=== PATIENT | female | born 1990 | race Caucasian/White ===

== ENCOUNTER 2022-02-28 07:48 | Outpatient (CLI) | payer OTHER, SELFPAY ==
--- NOTE | ~2022-02-28 | US_ITS ---
EXAMINATION: US OB /maternal detail DATE: 02/28/2022 09:32 INDICATION: Second trimester anatomic survey TECHNIQUE: Real-time ultrasound of the pelvis was performed. COMPARISON: None. FINDINGS: There is a single living fetus in vertex presentation. The placenta is posterior/fundal and 6.2 cm fr om the internal cervical os. The cervical length is 4.8 cm. heart rate is 126 beats per minute (bpm). cardiac activity and movement are noted. The amniotic fluid index is subjectively normal. The following anatomy was identified as normal: 4 chamber heart 3 vessel cord cord insertion kidneys urinary bladder stomach spine diaphragm ventricles cisterna magna cerebellum The following biometric data were obtained: Biparietal diameter (BPD): 3.9 cm; head circumference (HC): 15.0 cm; abdominal circumference (AC): 12 .7 cm; femur length (FL): 2.8 cm. These measurements are concordant. Estimated weight is 238 g +/- 35 g, which correlates with the 6th percentile when 07/22/2022 is used as estimated date of delivery. As single measurements, these parameters are each equal to the following estimated gestational ages w ith ranges of +/- 2 standard deviations: BPD: 18 weeks 0 days +/- 1 weeks 1 days. HC: 18 weeks 0 days +/- 1 weeks 3 days. AC: 18 weeks 2 days +/- 2 weeks 0 days. FL: 18 weeks 5 days +/- 1 weeks 6 days. estimated gestational age based solely on measurements from this exam is 18 weeks 2 days +/- 1 weeks 2 days. IMPRESSION: 1. Single living fetus in vertex presentation. 2. Estimated weight is 238 g +/- 35 g, which correlates with the 6th percentile when 07/22/2022 is used as estimated date of delivery. Reviewed, dictated and finalized at location B. IMPRESSION: 1. Single living fetus in vertex presentation. 2. Estimated weight is 238 g +/- 35 g, which correlates with the 6th perc entile when 07/22/2022 is used as estimated date of delivery.
== END 2022-02-28 07:49 | disposition home or self-care (01) ==
LOC: CHSIMG 07:51
PROVIDERS: Visit Provider Obstetrics & Gynecology
DX: Z34.90 Encounter for supervision of normal pregnancy, unspecified, unspecified trimester (principal)
CPT/HCPCS: 76805

== ENCOUNTER 2023-06-16 08:58 | Inpatient (IN) | payer MEDICAID, SELFPAY ==
[2023-06-16] VITALS (23 sets, daily range): BP systolic 136–167; BP diastolic 87–102; PULSE 61–101; RESP 16–22; TEMP 36.6–36.8; O2SAT 96–100; BMI 24.1
--- NOTE | ~2023-06-16 | CT_ITS ---
EXAMINATION: CT abdomen pelvis w con INDICATION: Abdominal pain, history of pancreatitis TECHNIQUE: Computed tomographic images of the abdomen and pelvis were obtained after the administrati on of 100 cc of Omnipaque 350 intravenous contrast. The dose-length product (DLP) was 219.13 mGy-cm. Automated exposure control and iterative reconstruction technique were employed. COMPARISON: None available FINDINGS: The lung bases are clear. The heart size is normal. The liver is diffusely low in attenuati on when compared with the spleen, consistent with hepatic steatosis. Hepatomegaly is noted. The splee n, gallbladder, and adrenal glands are normal. The pancreas is unremarkable. There is a small amount of peripancreatic fluid. The kidneys are unremarkable. No pathologically enlarged abdominal or pelvic lymph nodes are identified. No free intraperitoneal gas or evidence of bowel obstruction. There is a tiny umbilical hernia containing fat. IMPRESSION: 1. Acute pancreatitis, likely interstitial edematous, with acute peripancreatic fluid collection. 2. Diffuse hepatic steatosis. Reviewed, dictated and finalized at location F. R OPERATOR
[2023-06-16] MEDS: ONDANSETRON INJ 4 MG/2 ML VIAL IV PUSH ×4 (09:11→21:20)
[2023-06-16 09:12] LABS: Basophils Absolute Auto 0.1 K/mm3 (0.0-0.1); Basophils Percent Auto 0.9 % (0.2-1.2); Eosinophils Absolute Auto 0.1 K/mm3 (0-0.3); Eosinophils Percent Auto 0.7 % (0-4.4); Hematocrit 39.6 % (37.0-47.0); Hemoglobin 12.6 g/dL (12.0-15.0); Immature Granulocyte Absolute 0.02 K/mm3 (0.00-0.031); Immature Granulocyte Percent A 0.3 % (0-0.5); Lymphocytes Absolute Auto 1.06 K/mm3 (0.9-3.2); Lymphocytes Percent Auto 15.7 % (18.3-44.2); Mean Corpuscular HGB Conc 31.8 g/dl (32-36); Mean Corpuscular Hemoglobin 27.9 pg (26-34); Mean Corpuscular Volume 87.8 fl (80-100); Monocytes Absolute Auto 0.7 K/mm3 (0.1-0.6); Monocytes Percent Auto 10.7 % (2.6-8.5); Neutrophils Absolute Auto 4.9 K/mm3 (1.3-6.7); Neutrophils Percent Auto 71.7 % (45.5-73.1); Platelet Count Result 315 k/mm3 (150-375); Red Blood Count 4.51 M/mm3 (4.2-5.4); Red Cell Distribution Width 15.5 % (11.5-14.5); White Blood Count 6.8 K/mm3 (4.5-10.0)
[2023-06-16 09:24] LABS: Alanine Aminotransferase 141 U/L (6-35); Albumin Level 4.8 g/dL (3.5-5.1); Alkaline Phosphatase 125 U/L (38-126); Anion Gap 13 mmol/L (8-16); Aspartate Amino Transferase 251 U/L (14-36); Bilirubin,Total 2.1 mg/dL (0.2-1.3); Blood Urea Nitrogen 8 mg/dL (7-17); Calcium 9.5 mg/dL (8.4-10.2); Carbon Dioxide 25 mmol/L (22-30); Chloride 98 mmol/L (98-107); Estimated CRCL calculation 112 ml/min; Estimated Glomerular Filt Rate > 60; Glucose 125 mg/dL (65-110); Potassium 3.6 mmol/L (3.4-5.0); Sodium 136 mmol/L (137-145)
[2023-06-16 10:12] LABS: Bacteria Urine 1+ /hpf; Need Manual Microscopic Reviewed; Squamous Epithelial Cell Urine Moderate /hpf (Few)
[2023-06-16 10:13] LABS: Lipase 3927 U/L (23-300)
[2023-06-16 10:14] LABS: Appearance Urine Cloudy (Clear); Bilirubin Urine 2+ (Negative); Blood Urine Negative (Negative); Color Urine Orange (Yellow); Glucose Urine UA Negative (Negative); Ketones Urine 3+ mg/dL (Negative); Leukocyte Esterase Ur 1+ LEU/UL (Negative); Nitrate Urine Positive (Negative); Protein Urine 3+ mg/dL (Negative); Specific Grav Ur 1.042 (1.001-1.035); pH Urine 7.5 (5.0-9.0)
[2023-06-16 10:15] LABS: Add Urine Microscopic? YES
[2023-06-16] MEDS: SODIUM CHLORIDE 0.9% IV 1,000 ML 999 ML IV CONT ×2 (10:21→12:12)
--- NOTE | 2023-06-16 10:24 | PC.NURSE ---
pt states she drinks four to five shots of vodka a day. Pt states last drink was two days ago.
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
[2023-06-16] MEDS: HYDROmorphone HCL INJ (*CRX) 1 MG/ML SYR 0.5 MG IV PUSH ×4 (12:12→21:20)
[2023-06-16] MEDS: SODIUM CHLORIDE 0.9% IV 1,000 ML 200 ML IV CONT ×2 (15:11→20:10)
--- NOTE | 2023-06-16 15:22 | ADMGEN ---
This patient, Velia Deleon, was admitted to Medical Room 349-01. Patient/family oriented to hospital policies and general routines including ID bracelet, bed and alarms, visiting hours, pain management, procedures, bathroom and other care routines, personal items, smoking policy, room service/diet, and visiting hours. Information on how to activate the Rapid Response Team has been discussed. Patient/Family are encouraged to report perceived risks to care and to ask questions if they do not understand what they are told or what they should do.
[2023-06-16] MEDS: HYDROcodone/acetaminophen (*CRX) 5-325 MG TABLET 1 TAB PO (20:06)
[2023-06-16] MEDS: diphenhydrAMINE HCl INJ 50 MG/ML VIAL 25 MG IV PUSH (22:38)
[2023-06-16] MEDS: PROCHLORPERAZINE EDISYLATE 10 MG/2 ML VIAL IV PUSH (22:38)
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
[2023-06-17] VITALS: PULSE 92
[2023-06-17 01:04] LABS: Glucose Point of Care 82 mg/dl (65-105)
[2023-06-17] MEDS: SODIUM CHLORIDE 0.9% IV 1,000 ML 200 ML IV CONT (01:10)
[2023-06-17] MEDS: HYDROmorphone HCL INJ (*CRX) 1 MG/ML SYR 0.5 MG IV PUSH ×6 (02:57→20:13)
[2023-06-17] MEDS: ONDANSETRON INJ 4 MG/2 ML VIAL IV PUSH ×5 (03:00→20:33)
[2023-06-17 04:00] VITALS: PULSE 98
[2023-06-17 05:36] VITALS: BP 153/102; PULSE 89; RESP 18; TEMP 36.5; O2SAT 100
[2023-06-17 05:51] LABS: Basophils Percent Auto 0.3 % (0.2-1.2); Eosinophils Absolute Auto 0.2 K/mm3 (0-0.3); Eosinophils Percent Auto 2.1 % (0-4.4); Hematocrit 41.5 % (37.0-47.0); Immature Granulocyte Absolute 0.04 K/mm3 (0.00-0.031); Immature Granulocyte Percent A 0.4 % (0-0.5); Lymphocytes Absolute Auto 1.17 K/mm3 (0.9-3.2); Lymphocytes Percent Auto 10.3 % (18.3-44.2); Mean Corpuscular HGB Conc 31.3 g/dl (32-36); Mean Corpuscular Hemoglobin 28.3 pg (26-34); Mean Corpuscular Volume 90.2 fl (80-100); Mean Platelet Volume 9.1 fl (7.4-10.4); Monocytes Absolute Auto 0.5 K/mm3 (0.1-0.6); Monocytes Percent Auto 4.4 % (2.6-8.5); Neutrophils Absolute Auto 9.4 K/mm3 (1.3-6.7); Neutrophils Percent Auto 82.5 % (45.5-73.1); Platelet Count Result 209 k/mm3 (150-375); Red Cell Distribution Width 15.1 % (11.5-14.5); White Blood Count 11.4 K/mm3 (4.5-10.0)
[2023-06-17 06:10] LABS: Glucose Point of Care 86 mg/dl (65-105)
[2023-06-17 06:52] LABS: Alanine Aminotransferase 103 U/L (6-35); Albumin Level 3.7 g/dL (3.5-5.1); Alkaline Phosphatase 95 U/L (38-126); Anion Gap 8 mmol/L (8-16); Aspartate Amino Transferase 118 U/L (14-36); Blood Urea Nitrogen 2 mg/dL (7-17); Calcium 8.1 mg/dL (8.4-10.2); Carbon Dioxide 27 mmol/L (22-30); Chloride 97 mmol/L (98-107); Estimated CRCL calculation 112 ml/min; Estimated Glomerular Filt Rate > 60; Glucose 78 mg/dL (65-110); Potassium 3.6 mmol/L (3.4-5.0); Sodium 132 mmol/L (137-145)
[2023-06-17 07:31] LABS: Lipase 6028 U/L (23-300)
--- NOTE | 2023-06-17 08:38 | WPDGICN ---
Assessment and Plan Assessment and plan (1) Acute pancreatitis: Qualifiers: Acute pancreatitis complication: unspecified Pancreatitis type: alcohol induced Qualified Code(s): K85.20 - Alcohol induced acute pancreatitis without necrosis or infection Code(s): K85.90 - Acute pancreatitis without necrosis or infection, unspecified Status: Acute Assessment and Plan: this is her 2nd occurrence within 3 months. Both times associated with alcohol use/ ab use. Explained her that she is likely to get more frequent recurrences if he continues to drink. I also explained her that pancreatitis can be quite severe and in fact in some case is fatal (2) Alcohol abuse: Code(s): F10.10 - Alcohol abuse, uncomplicated Status: Acute Assessment and Plan: . She is not alcohol once for a extended period of time. She states that she intends to do that again. She wants to quit completely and she says that she has good support. (3) Transaminitis: Code(s): R74.01 - Elevation of levels of liver transaminase levels Status: Acute Assessment and Plan: bilirubin is 2. AST and ALT 454483 at admission however somewhat lower today. Plan Manage pain advance diet cautiously. Consider rehab for alcohol abuse GI Consult Note Consult date/time: 06/17/23 08:38 HPI: Velia Deleon is a 33 year old female who presented to the emergency room yesterday with a history of nausea vomiting abdominal pain beginning about 3 days prior. She has also had loose stools recently although no bowel movement now for the last 3 days. She has had pancreatitis in the past. She was in [place] a few months ago with pancreatitis. She admits that she drinks heavily several shots of hard alcohol each day. She had been clean for a while but relapsed. There is no family history of pancreatic disease or liver disease but a grandparent on either side of her family has from cancer of the pancreas. Her appetite is fairly good although she is not eating great. She has never had alcohol withdrawal syndrome except she thinks she had some tremors last day or 2 prior to admission and she has had no alcohol now for 3 days. Review of Systems Review of Systems: All systems reviewed & are unremarkable except as noted in HPI and below PMFSH Past Medical History Medical History Alcohol abuse Pancreatitis Family History Family History Grandparent Pancreatic cancer both maternal and paternal side Social History Social History Smoking packs per day: 0.5 Smoking cigarettes per day: 10.0 Years smoked: 15 Smoking pack-years: 7.50 Smoking status: Former smoker Tobacco type: cigarettes Alcohol intake: current Drinks per week: 35 Substance use: current Substance use type: marijuana Last use: 06/02/23 Lack of Transportation: No Lack of Food: Never True Current Housing: I Have Housing Concerned About Future Housing: No Difficulty Paying Gas/Electric Bills: No Difficulty Paying for Meds: No Currently Unemployed: YES Education: High School Diploma/GED Difficulty w/ Childcare or Family Care: No Spiritual care concerns: No Meds Home Medications and Allergies Home Medications Medication Instructions Recorded Confirmed Type No Home Medications 06/16/23 06/16/23 History Allergies Allergy/AdvReac Type Severity Reaction Status Date / Time No Known Allergies Allergy Mild Verified 06/16/23 10:23 Vital Signs Vital Signs - 24 hr 06/16/23 08:58 06/16/23 11:00 06/16/23 11:10 Temperature 36.6 C Pulse Rate 97 62 Pulse Rate [Monitor] Respiratory Rate 16 22 H Blood Pressure 139/87 152/90 H Pulse Oximetry 100 97 100 Oxygen Delivery 06/16/23 11:20 06/16/23 11:30 06/16/23 11
[2023-06-17] MEDS: ENOXAPARIN 40 MG/0.4 ML SYRINGE SUB-Q (08:58)
[2023-06-17 12:07] LABS: Hemoglobin A1C 5.1 % (<5.7)
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
[2023-06-17 12:33] LABS: Glucose Point of Care 80 mg/dl (65-105)
[2023-06-17 14:00] VITALS: BP 143/98; PULSE 103; RESP 18; TEMP 36.8; O2SAT 100
[2023-06-17 14:31] VITALS: BMI 24.1
[2023-06-17 17:28] LABS: Sodium 131 mmol/L (137-145)
[2023-06-17 17:38] LABS: Lipase 4267 U/L (23-300)
[2023-06-17 20:00] VITALS: PULSE 98
[2023-06-17] MEDS: SODIUM CHLORIDE 0.9% IV 1,000 ML 100 ML IV CONT (20:10)
[2023-06-17 21:51] VITALS: BP 147/89; PULSE 98; RESP 16; TEMP 36.5; O2SAT 97
[2023-06-17] MEDS: LORazepam INJ (*CRX) 2 MG/ML VIAL IV PUSH (22:51)
[2023-06-18] VITALS (9 sets, daily range): BP systolic 127–140; BP diastolic 85–98; PULSE 80–102; RESP 16–18; TEMP 36.2–36.6; O2SAT 99–100
[2023-06-18] MEDS: ONDANSETRON INJ 4 MG/2 ML VIAL IV PUSH ×5 (01:13→21:17)
[2023-06-18] MEDS: HYDROmorphone HCL INJ (*CRX) 1 MG/ML SYR 0.5 MG IV PUSH ×5 (01:13→21:17)
[2023-06-18] MEDS: SODIUM CHLORIDE 0.9% IV 1,000 ML 100 ML IV CONT (05:39)
[2023-06-18 06:08] LABS: Basophils Percent Auto 0.3 % (0.2-1.2); Eosinophils Absolute Auto 0.3 K/mm3 (0-0.3); Eosinophils Percent Auto 2.4 % (0-4.4); Hematocrit 38.2 % (37.0-47.0); Hemoglobin 12.2 g/dL (12.0-15.0); Immature Granulocyte Absolute 0.06 K/mm3 (0.00-0.031); Immature Granulocyte Percent A 0.6 % (0-0.5); Mean Corpuscular HGB Conc 31.9 g/dl (32-36); Mean Corpuscular Hemoglobin 28.3 pg (26-34); Mean Corpuscular Volume 88.6 fl (80-100); Mean Platelet Volume 9.1 fl (7.4-10.4); Monocytes Absolute Auto 0.7 K/mm3 (0.1-0.6); Monocytes Percent Auto 6.1 % (2.6-8.5); Neutrophils Absolute Auto 8.4 K/mm3 (1.3-6.7); Neutrophils Percent Auto 77.6 % (45.5-73.1); Platelet Count Result 180 k/mm3 (150-375); Red Blood Count 4.31 M/mm3 (4.2-5.4); White Blood Count 10.8 K/mm3 (4.5-10.0)
[2023-06-18 07:03] LABS: Alanine Aminotransferase 70 U/L (6-35); Albumin Level 3.1 g/dL (3.5-5.1); Alkaline Phosphatase 90 U/L (38-126); Anion Gap 8 mmol/L (8-16); Aspartate Amino Transferase 88 U/L (14-36); Bilirubin,Total 1.9 mg/dL (0.2-1.3); Blood Urea Nitrogen 3 mg/dL (7-17); Carbon Dioxide 27 mmol/L (22-30); Chloride 97 mmol/L (98-107); Estimated CRCL calculation 112 ml/min; Estimated Glomerular Filt Rate > 60; Glucose 77 mg/dL (65-110); Magnesium 1.5 mg/dL (1.6-2.3); Potassium 3.3 mmol/L (3.4-5.0); Sodium 132 mmol/L (137-145)
[2023-06-18 07:23] LABS: Lipase 2675 U/L (23-300)
[2023-06-18] MEDS: POTASSIUM CHLORIDE INJ 40 MEQ in SODIUM CHLORIDE 0.9% IV 500 ML 130 MEQ IVPB (08:29)
[2023-06-18] MEDS: MAGNESIUM SULFATE 3GM/D5W100ML 3 GM/100 ML BAG IVPB (08:29)
[2023-06-18] MEDS: HYDROcodone/acetaminophen (*CRX) 5-325 MG TABLET 1 TAB PO (08:33)
[2023-06-18] MEDS: ENOXAPARIN 40 MG/0.4 ML SYRINGE SUB-Q (08:36)
--- NOTE | 2023-06-18 09:12 | WPDGIPROGNO ---
Progress Note: A&P Assessment and Plan (1) Acute pancreatitis: Qualifiers: Acute pancreatitis complication: unspecified Pancreatitis type: alcohol induced Qualified Code(s): K85.20 - Alcohol induced acute pancreatitis without necrosis or infection Code(s): K85.90 - Acute pancreatitis without necrosis or infection, unspecified Status: Acute Assessment and Plan: this is her 2nd occurrence within 3 months. Both times associated with alcohol use/ ab use. I Explained to her that she is likely to get more frequent recurrences if he continues to drink. I also explained her that pancreatitis can be quite severe and in fact in some case is fatal 06/18/2023 lipase is down to 2675 this morning. (2) Alcohol abuse: Code(s): F10.10 - Alcohol abuse, uncomplicated Status: Acute Assessment and Plan: . She is not alcohol once for a extended period of time. She states that she intends to do that again. She wants to quit completely and she says that she has good support. (3) Transaminitis: Code(s): R74.01 - Elevation of levels of liver transaminase levels Status: Acute Assessment and Plan: bilirubin is 2. AST and ALT 251/141 at admission however somewhat lower today. 06/18/2023 labs are improving. Bilirubin is 1.9 today. AST and ALT are 88 and 70 respectively. Plan Manage pain advance diet cautiously. Consider rehab for alcohol abuse When pain can be managed without morphine and she is able to eat then she could be discharged from my perspective. Please contact me if I can be of any further assistance Subjective Date/time seen: 06/18/23 09:12 She has less pain today. She thinks that has been actually several hours since she last requested morphine. She is taking clear liquids but does not feel up to trying anything more as she does not have an appetite. Exam Const: General: cooperative, healthy appearing, no acute distress and uncomfortable Orientation/consciousness: patient oriented x3 HENMT: Head: normal to inspection Ears: hearing grossly normal bilaterally Mouth: Yes Normal oral and palatal mucosa present Eyes: General: appearance normal, both eyes and all related structures Neck: Neck: normal visual inspection Chest: Chest palpation & inspection: normal inspection of the chest Resp: Effort & Inspection: normal respiratory effort Auscultation: clear to auscultation bilaterally Cardio: Rate: regular rate Rhythm: regular rhythm GI: Inspection: normal to inspection GI Palp: Yes abdominal tenderness (Upper abdomen), Yes Soft to palpation and No Guarding due to palpation present (GI) Auscultation: normal bowel sounds Skin: General skin exam: normal color and no jaundice Neuro: General: patient oriented x3 Speech: normal speech Objective Data Vital Signs Vital Signs: Vital Signs - 24 hr 06/17/23 14:00 06/17/23 21:51 06/17/23 20:00 Temperature 36.8 C 36.5 C Pulse Rate 103 H 98 Pulse Rate [Monitor] 98 Respiratory Rate 18 16 Blood Pressure 143/98 H 147/89 H Pulse Oximetry 100 97 Oxygen Delivery 06/18/23 00:00 06/18/23 04:12 06/18/23 04:00 Temperature 36.4 C Pulse Rate 86 Pulse Rate [Monitor] 96 102 H Respiratory Rate 16 Blood Pressure 127/85 Pulse Oximetry 99 Oxygen Delivery 06/18/23 08:00 06/18/23 08:00 Temperature Pulse Rate Pulse Rate [Monitor] 102 H Respiratory Rate Blood Pressure 127/85 Pulse Oximetry Oxygen Delivery Room Air Intake/Output Intake/Output: Intake & Output 06/15/23 06/16/23 06/17/23 06/18/23 23:59 23:59 23:59 23:59 Intake Total 3050 2880 1300 Balance 3050 2880 1300 Meds/Results Medications: Active Medications Generic Name Dose Route Start Last Admin Trade Name Freq PRN Reason Stop Dose Admin Hydrocodone Bitart/Acetaminophen 1 tab 06/16/23 19:52 06/18/23 08:33 Hydrocodone/Acetaminophen (*Crx) 5-325 Mg Tablet PO 1 tab Q4H PRN
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
[2023-06-18] MEDS: LORazepam INJ (*CRX) 2 MG/ML VIAL IV PUSH (23:43)
[2023-06-19] VITALS (7 sets, daily range): BP systolic 138–144; BP diastolic 101–105; PULSE 77–99; RESP 16–20; TEMP 36.7–37.3; O2SAT 97–100
[2023-06-19] MEDS: ONDANSETRON INJ 4 MG/2 ML VIAL IV PUSH ×4 (03:19→17:22)
[2023-06-19] MEDS: HYDROmorphone HCL INJ (*CRX) 1 MG/ML SYR 0.5 MG IV PUSH (03:19)
[2023-06-19] MEDS: LORazepam INJ (*CRX) 2 MG/ML VIAL IV PUSH (03:41)
[2023-06-19 06:39] LABS: Basophils Percent Auto 0.4 % (0.2-1.2); Eosinophils Absolute Auto 0.3 K/mm3 (0-0.3); Eosinophils Percent Auto 2.9 % (0-4.4); Hemoglobin 12.6 g/dL (12.0-15.0); Immature Granulocyte Absolute 0.07 K/mm3 (0.00-0.031); Immature Granulocyte Percent A 0.8 % (0-0.5); Lymphocytes Absolute Auto 1.34 K/mm3 (0.9-3.2); Lymphocytes Percent Auto 14.9 % (18.3-44.2); Mean Corpuscular HGB Conc 30.7 g/dl (32-36); Mean Corpuscular Hemoglobin 28.3 pg (26-34); Mean Corpuscular Volume 91.9 fl (80-100); Mean Platelet Volume 9.6 fl (7.4-10.4); Monocytes Absolute Auto 0.8 K/mm3 (0.1-0.6); Monocytes Percent Auto 9.3 % (2.6-8.5); Neutrophils Absolute Auto 6.5 K/mm3 (1.3-6.7); Neutrophils Percent Auto 71.7 % (45.5-73.1); Platelet Count Result 221 k/mm3 (150-375); Red Blood Count 4.46 M/mm3 (4.2-5.4); Red Cell Distribution Width 15.7 % (11.5-14.5)
[2023-06-19 06:50] LABS: Alanine Aminotransferase 76 U/L (6-35); Albumin Level 3.8 g/dL (3.5-5.1); Alkaline Phosphatase 134 U/L (38-126); Anion Gap 10 mmol/L (8-16); Aspartate Amino Transferase 118 U/L (14-36); Bilirubin,Total 1.6 mg/dL (0.2-1.3); Blood Urea Nitrogen 3 mg/dL (7-17); Carbon Dioxide 22 mmol/L (22-30); Chloride 103 mmol/L (98-107); Estimated CRCL calculation 137 ml/min; Estimated Glomerular Filt Rate > 60; Glucose 79 mg/dL (65-110); Lipase 1197 U/L (23-300); Magnesium 2.1 mg/dL (1.6-2.3); Potassium 3.8 mmol/L (3.4-5.0); Sodium 135 mmol/L (137-145)
[2023-06-19] MEDS: ENOXAPARIN 40 MG/0.4 ML SYRINGE SUB-Q (08:53)
[2023-06-19] MEDS: SODIUM CHLORIDE 0.9% IV 1,000 ML 100 ML IV CONT ×2 (08:53→21:01)
[2023-06-19] MEDS: HYDROcodone/acetaminophen (*CRX) 5-325 MG TABLET 1 TAB PO ×2 (08:54→13:29)
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
[2023-06-19 14:17] LABS: Lipase 1204 U/L (23-300)
[2023-06-19] MEDS: IBUPROFEN 600 MG TABLET PO (17:22)
[2023-06-19] MEDS: ACETAMINOPHEN 325 MG TABLET 650 MG PO (21:00)
[2023-06-19] MEDS: MELATONIN 5 MG TABLET PO (21:00)
[2023-06-20 05:54] LABS: Basophils Absolute Auto 0.1 K/mm3 (0.0-0.1); Basophils Percent Auto 0.8 % (0.2-1.2); Eosinophils Absolute Auto 0.2 K/mm3 (0-0.3); Eosinophils Percent Auto 3.6 % (0-4.4); Hemoglobin 11.6 g/dL (12.0-15.0); Immature Granulocyte Absolute 0.07 K/mm3 (0.00-0.031); Immature Granulocyte Percent A 1.1 % (0-0.5); Mean Corpuscular HGB Conc 31.4 g/dl (32-36); Mean Corpuscular Hemoglobin 28.6 pg (26-34); Mean Corpuscular Volume 91.1 fl (80-100); Mean Platelet Volume 9.2 fl (7.4-10.4); Monocytes Absolute Auto 0.7 K/mm3 (0.1-0.6); Monocytes Percent Auto 10.7 % (2.6-8.5); Neutrophils Absolute Auto 3.9 K/mm3 (1.3-6.7); Neutrophils Percent Auto 62.8 % (45.5-73.1); Platelet Count Result 244 k/mm3 (150-375); Red Blood Count 4.06 M/mm3 (4.2-5.4); White Blood Count 6.2 K/mm3 (4.5-10.0)
[2023-06-20 06:00] VITALS: BP 167/119; PULSE 62; RESP 19; TEMP 36.5; O2SAT 100
[2023-06-20 06:13] LABS: Alanine Aminotransferase 73 U/L (6-35); Albumin Level 3.4 g/dL (3.5-5.1); Alkaline Phosphatase 139 U/L (38-126); Anion Gap 9 mmol/L (8-16); Aspartate Amino Transferase 115 U/L (14-36); Bilirubin,Total 1.2 mg/dL (0.2-1.3); Blood Urea Nitrogen 4 mg/dL (7-17); Calcium 8.9 mg/dL (8.4-10.2); Carbon Dioxide 22 mmol/L (22-30); Chloride 105 mmol/L (98-107); Estimated CRCL calculation 137 ml/min; Estimated Glomerular Filt Rate > 60; Glucose 85 mg/dL (65-110); Lipase 945 U/L (23-300); Magnesium 1.8 mg/dL (1.6-2.3); Potassium 3.5 mmol/L (3.4-5.0); Sodium 136 mmol/L (137-145)
[2023-06-20 08:00] VITALS: PULSE 62; RESP 19; O2SAT 100
[2023-06-20] MEDS: CEFDINIR 300 MG CAPSULE PO (10:21)
[2023-06-20 10:31] VITALS: BP 147/104
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
--- NOTE | 2023-06-20 11:22 | PCNFU ---
Nutrition Follow-Up Complete: Inadequate oral intake related to acute pancreatitis, chronic alcohol abuse as evidenced by patient report of poor appetite, nausea and vomiting Goal:Diet advancement Pt meeting goal. New goal of po intake 75% of meals. Pt current nutrition is Low fat. Nutrition recommendation: continue with current plan of care Last recorded weight is 61.9 kg. Bowel Motility: No recent BM charted at this time Labs Reviewed: Alb:3.4, NA:136, BUN:4, Cr:0.4 Meds Noted:lovenox, zofran Skin: WNL Additional Notes: Pt diet advanced to low fat, intake 50-75% most meals, pt reports tolerating well. Appetite is fair at this time. Monitoring diet orders, plan of care, intakes, weights, labs, stool patterns Follow up in 5 days
== END 2023-06-20 12:45 | disposition home or self-care (01) | DRG 282 ==
LOC: ANHED 12:03 → ANH3MEDSUR 14:31 → ANH3MED 14:55
PROVIDERS: Student in an Organized Health Care Education/Training Program; Admitting Provider Family Medicine; Emergency Provider Emergency Medicine; Visit Provider Nurse Practitioner
DX: K85.20 Alcohol induced acute pancreatitis without necrosis or infection (principal); N39.0 Urinary tract infection, site not specified; K59.00 Constipation, unspecified; E87.1 Hypo-osmolality and hyponatremia; R74.01 Elevation of levels of liver transaminase levels; F10.10 Alcohol abuse, uncomplicated; F12.90 Cannabis use, unspecified, uncomplicated; Z87.891 Personal history of nicotine dependence
CPT/HCPCS: 36415; 74177; 80053; 81001; 81025; 82948; 83036; 83690; 83735; 84295; 85025; 87086; 87088; 96361; 96365; 96375; 96376; 99285; A9270; J0696; J0780; J1170; J1200; J1650; J2060; J2405; J3475; J3480; J7030; J7040; Q9967

== ENCOUNTER 2023-07-06 15:54 | Inpatient (IN) | payer MEDICAID, SELFPAY ==
[2023-07-06] VITALS (24 sets, daily range): BP systolic 126–166; BP diastolic 87–107; PULSE 97–135; RESP 14–21; TEMP 36.8–37.1; O2SAT 96–100; BMI 22.7
--- NOTE | 2023-07-06 16:08 | ECG_ITS ---
Measurements Intervals [place] Rate: 124 P: 66 IL: 176 QRS: 73 QRSD: 81 T: 55 QT: 336 QTc: 484 Interpretive Statements SINUS TACHYCARDIA NONSPECIFIC T-WAVE ABNORMALITY ABNORMAL RHYTHM ECG NO PREVIOUS ECG AVAILABLE FOR COMPARISON Electronically Signed On 07-07-2023 14:45:39 [employer] by Gurpreet Wall M.D.
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
--- NOTE | 2023-07-06 19:06 | PCCCNOTE ---
CC received referral for alcohol abuse. Met with patient and mother bedside. patient is alert and oriented x 4. patient states that her last drink was around 12pm today. CC offered patient resources for substance abuse and patient agreeable to referral being made to [facility]. patient states that she has met Tuan once and really liked him. patient stated that she is ok with DC and will follow up with Tuan. CC will continue to follow for any other needs that may arise.
[2023-07-06] MEDS: SODIUM CHLORIDE 0.9% IV 1,000 ML 999 ML IV CONT (19:44)
[2023-07-06] MEDS: THIAMINE HCL 200 MG/2 ML VIAL 100 MG IV PUSH (19:45)
[2023-07-06 19:46] LABS: Basophils Absolute Auto 0.1 K/mm3 (0.0-0.1); Basophils Percent Auto 1.4 % (0.2-1.2); Eosinophils Absolute Auto 0.4 K/mm3 (0-0.3); Eosinophils Percent Auto 4.5 % (0-4.4); Hematocrit 40.1 % (37.0-47.0); Hemoglobin 12.7 g/dL (12.0-15.0); Immature Granulocyte Absolute 0.03 K/mm3 (0.00-0.031); Immature Granulocyte Percent A 0.4 % (0-0.5); Lymphocytes Absolute Auto 2.75 K/mm3 (0.9-3.2); Lymphocytes Percent Auto 32.8 % (18.3-44.2); Mean Corpuscular HGB Conc 31.7 g/dl (32-36); Mean Corpuscular Hemoglobin 28.5 pg (26-34); Mean Corpuscular Volume 90.1 fl (80-100); Monocytes Absolute Auto 0.4 K/mm3 (0.1-0.6); Monocytes Percent Auto 4.8 % (2.6-8.5); Neutrophils Absolute Auto 4.7 K/mm3 (1.3-6.7); Neutrophils Percent Auto 56.1 % (45.5-73.1); Platelet Count Result 453 k/mm3 (150-375); Red Blood Count 4.45 M/mm3 (4.2-5.4); Red Cell Distribution Width 18.2 % (11.5-14.5); White Blood Count 8.4 K/mm3 (4.5-10.0)
[2023-07-06] MEDS: LORazepam INJ (*CRX) 2 MG/ML VIAL IV PUSH (19:46)
[2023-07-06] MEDS: FOLIC ACID 1 MG/0.2 ML INJ IV PUSH (19:47)
[2023-07-06] MEDS: chlordiazePOXIDE (*CRX) 25 MG CAPSULE 50 MG PO (19:47)
[2023-07-06 19:57] LABS: Ethanol 235 mg/dL (<10)
[2023-07-06 20:08] LABS: Alanine Aminotransferase 208 U/L (6-35); Albumin Level 4.2 g/dL (3.5-5.1); Alkaline Phosphatase 154 U/L (38-126); Anion Gap 13 mmol/L (8-16); Aspartate Amino Transferase 417 U/L (14-36); Bilirubin,Total 0.7 mg/dL (0.2-1.3); Blood Urea Nitrogen 6 mg/dL (7-17); Calcium 8.8 mg/dL (8.4-10.2); Carbon Dioxide 29 mmol/L (22-30); Chloride 99 mmol/L (98-107); Estimated CRCL calculation 108 ml/min; Estimated Glomerular Filt Rate > 60; Glucose 94 mg/dL (65-110); Potassium 3.4 mmol/L (3.4-5.0); Sodium 141 mmol/L (137-145)
[2023-07-06 20:14] LABS: Lipase 2341 U/L (23-300)
[2023-07-06 20:24] LABS: Pregnancy On Board Control Positive; Urine Pregnancy Test Negative
[2023-07-06 20:26] LABS: Appearance Urine Turbid (Clear); Bacteria Urine None Seen /hpf; Bilirubin Urine 1+ (Negative); Blood Urine Negative (Negative); Calcium Oxalate Crystals Urine Present /hpf; Color Urine Dark Yellow (Yellow); Glucose Urine UA Negative (Negative); Ketones Urine 1+ mg/dL (Negative); Leukocyte Esterase Ur Trace LEU/UL (Negative); Need Manual Microscopic Reviewed; Nitrate Urine Negative (Negative); Non Pathogenic Casts 0-2; Protein Urine 1+ mg/dL (Negative); RBC Urine 0-2 /hpf (0-2); Specific Grav Ur 1.022 (1.001-1.035); Squamous Epithelial Cell Urine Few /hpf (Few)
[2023-07-06 20:27] LABS: Add Urine Microscopic? YES
--- NOTE | 2023-07-06 22:17 | PM.IMHP ---
H&P: HPI History of Present Illness Date/Time: 07/06/23 22:17 Chief Complaint: nausea Narrative: 33F w/ PMH alcohol abuse, tobacco abuse, previous multisubstance abuse, and history of pancreatitis and alcohol withdrawal. She presents with detox requests but concurrently has tremors and nausea. ED course reveals elevated lipase at 2341 and sinus tachycardia. She received 1L NS bolus, folic acid, librium 50mg, thiamine and ativan 2mg. Pt reports feeling better, the tremor has gone done, and she does want to eat now. She reports 5 hard liquors shots per day but ER physician relays the mother reporting it is much more. Review of Systems Review of Systems: All systems reviewed & are unremarkable except as noted in HPI and below (HPI) [facility] Past Medical History Medical History Alcohol abuse Pancreatitis Family History Family History Grandparent Pancreatic cancer both maternal and paternal side Social History Social History Smoking packs per day: 0.5 Smoking cigarettes per day: 10.0 Years smoked: 15 Smoking pack-years: 7.50 Smoking status: Former smoker Tobacco type: cigarettes Alcohol intake: current Drinks per week: 35 Substance use: current Substance use type: marijuana Last use: 06/02/23 Do You Feel Safe in your Home?: Yes Lack of Transportation: No Lack of Food: Never True Current Housing: I Have Housing Concerned About Future Housing: No Difficulty Paying Gas/Electric Bills: No Difficulty Paying for Meds: No Currently Unemployed: YES Education: High School Diploma/GED Difficulty w/ Childcare or Family Care: No Spiritual care concerns: No Meds Home Medications and Allergies Home Medications Medication Instructions Recorded Confirmed Type No Home Medications 07/06/23 07/06/23 History Allergies Allergy/AdvReac Type Severity Reaction Status Date / Time No Known Allergies Allergy Mild Verified 07/06/23 17:46 Vital Signs Vital Signs - 24 hr 07/06/23 15:56 07/06/23 17:44 07/06/23 17:45 Temperature 98.7 F Pulse Rate 135 H 119 H 112 H Respiratory Rate 20 16 21 H Blood Pressure 126/90 Pulse Oximetry 98 99 99 Oxygen Delivery Room Air 07/06/23 17:46 07/06/23 17:47 07/06/23 18:00 Temperature Pulse Rate 114 H 106 H 102 H Respiratory Rate 21 H 21 H Blood Pressure 130/96 H 131/89 Pulse Oximetry 98 99 96 Oxygen Delivery 07/06/23 18:01 07/06/23 18:15 07/06/23 18:38 Temperature Pulse Rate 106 H 106 H Respiratory Rate 19 Blood Pressure Pulse Oximetry 97 98 97 Oxygen Delivery 07/06/23 18:45 07/06/23 19:09 07/06/23 19:15 Temperature Pulse Rate 118 H 120 H 114 H Respiratory Rate 19 19 Blood Pressure Pulse Oximetry 96 98 98 Oxygen Delivery 07/06/23 19:30 07/06/23 19:45 07/06/23 20:34 Temperature Pulse Rate 111 H 97 125 H Respiratory Rate 20 20 Blood Pressure 134/94 H 166/107 H Pulse Oximetry 97 100 Oxygen Delivery 07/06/23 20:45 07/06/23 21:00 07/06/23 21:01 Temperature Pulse Rate 119 H 125 H 130 H Respiratory Rate 18 Blood Pressure 148/104 H Pulse Oximetry 98 97 96 Oxygen Delivery 07/06/23 21:17 07/06/23 21:30 07/06/23 21:31 Temperature Pulse Rate 111 H 113 H 117 H Respiratory Rate 14 Blood Pressure 142/87 H Pulse Oximetry 98 96 97 Oxygen Delivery Exam Const: General: comfortable and no acute distress Eyes: Pupils: Equal, round and reactive pupils present Neck: Neck: supple Resp: Effort & Inspection: normal respiratory effort Auscultation: clear to auscultation bilaterally, no crackles, no rales and no rhonchi Cardio: Rate: tachycardic Rhythm: regular rhythm Heart sounds: no gallops, no murmurs and no rubs GI: Inspection: non-distended GI Palp: Yes So
--- NOTE | 2023-07-06 23:05 | ADMGEN ---
This patient, Velia Deleon, was admitted to IMU Room 205-01.[id number] Patient/family oriented to hospital policies and general routines including ID bracelet, bed and alarms, visiting hours, pain management, procedures, bathroom and other care routines, personal items, smoking policy, room service/diet, and visiting hours. Information on how to activate the Rapid Response Team has been discussed. Patient/Family are encouraged to report perceived risks to care and to ask questions if they do not understand what they are told or what they should do.
[2023-07-07] VITALS (9 sets, daily range): BP systolic 126–143; BP diastolic 84–99; PULSE 88–102; RESP 14–20; TEMP 36.2–36.9; O2SAT 95–100
[2023-07-07] MEDS: LORazepam INJ (*CRX) 2 MG/ML VIAL IV PUSH (00:14)
[2023-07-07 04:52] LABS: Basophils Absolute Auto 0.1 K/mm3 (0.0-0.1); Basophils Percent Auto 1.3 % (0.2-1.2); Eosinophils Absolute Auto 0.5 K/mm3 (0-0.3); Hematocrit 34.1 % (37.0-47.0); Hemoglobin 10.7 g/dL (12.0-15.0); Immature Granulocyte Absolute 0.03 K/mm3 (0.00-0.031); Immature Granulocyte Percent A 0.5 % (0-0.5); Lymphocytes Absolute Auto 1.94 K/mm3 (0.9-3.2); Lymphocytes Percent Auto 32.4 % (18.3-44.2); Mean Corpuscular HGB Conc 31.4 g/dl (32-36); Mean Corpuscular Hemoglobin 28.9 pg (26-34); Mean Corpuscular Volume 92.2 fl (80-100); Mean Platelet Volume 9.4 fl (7.4-10.4); Monocytes Absolute Auto 0.4 K/mm3 (0.1-0.6); Monocytes Percent Auto 6.2 % (2.6-8.5); Neutrophils Absolute Auto 3.1 K/mm3 (1.3-6.7); Neutrophils Percent Auto 51.6 % (45.5-73.1); Platelet Count Result 348 k/mm3 (150-375); Red Cell Distribution Width 18.4 % (11.5-14.5)
[2023-07-07 05:15] LABS: Alanine Aminotransferase 152 U/L (6-35); Albumin Level 3.2 g/dL (3.5-5.1); Alkaline Phosphatase 125 U/L (38-126); Anion Gap 8 mmol/L (8-16); Aspartate Amino Transferase 294 U/L (14-36); Bilirubin,Total 1.3 mg/dL (0.2-1.3); Blood Urea Nitrogen 7 mg/dL (7-17); Calcium 8.1 mg/dL (8.4-10.2); Carbon Dioxide 31 mmol/L (22-30); Chloride 100 mmol/L (98-107); Estimated CRCL calculation 96 ml/min; Estimated Glomerular Filt Rate > 60; Glucose 91 mg/dL (65-110); Magnesium 1.7 mg/dL (1.6-2.3); Potassium 3.5 mmol/L (3.4-5.0); Sodium 139 mmol/L (137-145)
[2023-07-07] MEDS: chlordiazePOXIDE (*CRX) 25 MG CAPSULE PO ×3 (05:34→17:40)
[2023-07-07] MEDS: KETOROLAC 15 MG/ML VIAL (*BKC) IV PUSH (06:20)
--- NOTE | 2023-07-07 09:29 | PM.IMPN ---
Progress Note: A&P Assessment and Plan (1) Transaminitis: Code(s): R74.01 - Elevation of levels of liver transaminase levels Status: Acute Assessment and Plan: Due to alcohol abuse (2) Alcohol abuse: Code(s): F10.10 - Alcohol abuse, uncomplicated Status: Acute Assessment and Plan: 07/07/2023 add acamprosate Plans outpatient AUD f/u in [place] and to continue with AA meetings (3) Acute pancreatitis: Qualifiers: Acute pancreatitis complication: unspecified Pancreatitis type: alcohol induced Qualified Code(s): K85.20 - Alcohol induced acute pancreatitis without necrosis or infection Code(s): K85.90 - Acute pancreatitis without necrosis or infection, unspecified Status: Acute Assessment and Plan: Clinically resolving Subjective Date/time seen: 07/07/23 09:29 Interval history: Feeling much better and wonders when she can go home. Tolerated breakfast with turkey sausage. Denied chest pain abdominal pain or shortness of breath. Denied GI or difficulties. Bowels moved a little today. Does have some lower back pain that is positional and mild. No abnormal bleeding. Review of Systems Review of Systems: All systems reviewed & are unremarkable except as noted in HPI and below (HPI) Exam Narrative: HEENT: PERRL, sclerae nonicteric, pharyngeal mucosa pink and intact NECK: No JVD CHEST: Clear to auscultation. Normal effort. HEART: NL S1/S2, regular, no murmur ABDOMEN: BS+, soft, nontender, no mass, no bruits EXTREMITIES: No cyanosis, edema, or clubbing NEUROLOGIC: CN intact and symmetric to inspection. No tremor. MUSCULOSKELETAL: Tone and strength symmetric. PSYCH: Alert. Oriented to person, place, and time. Objective Data Vital Signs Vital Signs: Vital Signs - 24 hr 07/06/23 15:56 07/06/23 17:44 07/06/23 17:45 Temperature 98.7 F Pulse Rate 135 H 119 H 112 H Respiratory Rate 20 16 21 H Blood Pressure 126/90 Pulse Oximetry 98 99 99 Oxygen Delivery Room Air 07/06/23 17:46 07/06/23 17:47 07/06/23 18:00 Temperature Pulse Rate 114 H 106 H 102 H Respiratory Rate 21 H 21 H Blood Pressure 130/96 H 131/89 Pulse Oximetry 98 99 96 Oxygen Delivery 07/06/23 18:01 07/06/23 18:15 07/06/23 18:38 Temperature Pulse Rate 106 H 106 H Respiratory Rate 19 Blood Pressure Pulse Oximetry 97 98 97 Oxygen Delivery 07/06/23 18:45 07/06/23 19:09 07/06/23 19:15 Temperature Pulse Rate 118 H 120 H 114 H Respiratory Rate 19 19 Blood Pressure Pulse Oximetry 96 98 98 Oxygen Delivery 07/06/23 19:30 07/06/23 19:45 07/06/23 20:34 Temperature Pulse Rate 111 H 97 125 H Respiratory Rate 20 20 Blood Pressure 134/94 H 166/107 H Pulse Oximetry 97 100 Oxygen Delivery 07/06/23 20:45 07/06/23 21:00 07/06/23 21:01 Temperature Pulse Rate 119 H 125 H 130 H Respiratory Rate 18 Blood Pressure 148/104 H Pulse Oximetry 98 97 96 Oxygen Delivery 07/06/23 21:17 07/06/23 21:30 07/06/23 21:31 Temperature Pulse Rate 111 H 113 H 117 H Respiratory Rate 14 Blood Pressure 142/87 H Pulse Oximetry 98 96 97 Oxygen Delivery 07/06/23 21:32 07/06/23 22:20 07/06/23 23:03 Temperature 98.2 F Pulse Rate 122 H 118 H 107 H Respiratory Rate 17 20 Blood Pressure 135/89 Pulse Oximetry 96 99 99 Oxygen Delivery 07/07/23 00:00 07/07/23 01:04 07/07/23 02:00 Temperature 97.2 F L Pulse Rate 98 102 H 90 Respiratory Rate 20 Blood Pressure 128/84 Pulse Oximetry 95 Oxygen Delivery 07/07/23 04:00 07/07/23 04:33 07/07/23 06:00 Temperature 97.7 F Pulse Rate 101 H 93 98 Respiratory Rate 20 Blood Pressure 126/87 Pulse Oximetry 98 Oxygen Delivery 07/07/23 08:00 Temperature 97.5 F L Pulse Rate 92 Respiratory Rate 14 Blood Pressure 142/99 H Pulse Oximetry 100 Oxygen Delivery Intake/Output Intake/Output: Intake & Output 07/04/2306/08
--- NOTE | 2023-07-07 19:47 | P.PNCROSS_ITS ---
Event Note Event Note Event Note: I received a call from the patient's nurse around 19:30 reporting that the maxx ent had signed AMA paperwork and had left the department. I was not notified prior to the patient leaving and did not see or examine the patient.
== END 2023-07-07 19:36 | disposition left against medical advice (07) | DRG 282 ==
LOC: ANHED 22:09 → ANHIMU 22:23
PROVIDERS: Admitting Provider General Practice; Emergency Provider Emergency Medicine; PCP Physician Assistant; Visit Provider Physician Assistant
DX: K85.20 Alcohol induced acute pancreatitis without necrosis or infection (principal); F10.10 Alcohol abuse, uncomplicated; F19.10 Other psychoactive substance abuse, uncomplicated; R74.01 Elevation of levels of liver transaminase levels; Y90.7 Blood alcohol level of 200-239 mg/100 ml; Z87.891 Personal history of nicotine dependence
CPT/HCPCS: 36415; 80053; 80307; 81001; 81025; 83690; 83735; 85025; 87086; 93005; 96361; 96374; 96375; 99285; A9270; G0378; G0379; J1885; J2060; J3411; J3475; J7030; J7042

== ENCOUNTER 2023-07-27 22:51 | Emergency (ER) | payer OTHER, SELFPAY ==
--- NOTE | ~2023-07-27 | CT_ITS ---
EXAMINATION: CT brain wo con DATE: 07/27/2023 23:42 INDICATION: Mental status changes TECHNIQUE: Computed tomography (CT) of the head was performed without intravenous contrast. The mA wa s adjusted according to patient size. Iterative reconstruction technique was employed. Exam dose: 52 9.67 mGy-cm total exam DLP. COMPARISON: None FINDINGS: No intracranial mass lesion or hemorrhage or cerebrovascular accident. No midline shift or mass effect effect. Normal ventricular size. No subdural or epidural hematoma. Orbital contents are unremarkable. There is soft tissue density at the uppermost aspect of the right maxillary sinus which is minimally included in this examination. The right frontal sinus is not developed. The included paranasal sinuses and the mastoid air cells ar e otherwise unremarkable. No fracture or bone destruction of the cranial vault. IMPRESSION: No significant intracranial abnormality Right maxillary sinus disease Reviewed, dictated and finalized at [facility] Reviewed, dictated and finalized at [facility] [employer]
[2023-07-27 23:00] VITALS: BP 127/95; PULSE 76; PULSE 78; RESP 12; TEMP 36.8; O2SAT 98
--- NOTE | 2023-07-27 23:00 | ED.ALCOHOL ---
HPI - Alcohol General Chief Complaint: Weakness Stated Complaint: weakness Time Seen by Provider: 07/27/23 22:58 Source: patient and EMS Mode of arrival: ambulatory Limitations: no limitations History of Present Illness HPI narrative: 33-year-old female, alcoholic, smoker with a history of polysubstance abuse, recurrent pancreatitis, has had multiple admissions in the past 3 months for alcohol withdrawal, trauma and pancreatitis. The patient was admitted from 07/06/23 to 07/07/2023, and 07/15/2023 to 07/18/2023 1023 for alcohol withdrawal, trauma, pancreatitis and alcoholic hepatitis. After discharge on 07/18/2023 the patient has been sober for the past few days and today she had a couple of drinks and smoked marijuana following which she -- she feels her body is numb. -- altered mental status the patient denied any chest pain or shortness of breath. The patient denied any nausea / vomiting /abdominal pain /diarrhea. MD complaint: alcohol intoxication Last drink: unknown Chronic alcohol use: Yes Previous visits for alcohol intoxication: Yes Recent trauma: No Associated symptoms: other ( altered mental status) Treatments prior to arrival: none Related Data Home Medications Medication Instructions Recorded Confirmed No Home Medications 07/06/23 07/28/23 Allergies Allergy/AdvReac Type Severity Reaction Status Date / Time No Known Allergies Allergy Mild Verified 07/28/23 00:08 Review of Systems Review of Systems: All systems reviewed & are unremarkable except as noted in HPI and below Constitutional: Constitutional: Reports as per HPI, Reports no additional constitutional complaints and Reports weakness Eyes: Eyes: Reports as per HPI and Reports no additional eye complaints ENT: Reports system reviewed and no additional complaints, except as documented and Reports as per HPI Cardiovascular: Cardiovascular: Reports as per HPI and Reports no additional cardiovascular complaints Respiratory: Respiratory: Reports as per HPI and Reports no additional respiratory complaints Gastrointestinal: Gastrointestinal: Reports as per HPI and Reports no additional gastrointestinal complaints Genitourinary: Genitourinary: Reports no additional female genitourinary complaints Musculoskeletal: Musculoskeletal: Reports no additional musculoskeletal complaints and Reports as per HPI Integumentary/Breasts: Skin/Breast: Reports system reviewed and no additional complaints, except as docu and Reports as per HPI Neurologic: Reports system reviewed and no additional complaints, except as documented, Reports dizziness and Reports weakness Psychiatric: Psychiatric: Reports no additional psychiatric complaints and Reports as per HPI Endocrine: Endocrine: Reports no additional endocrine complaints and Reports as per HPI Hematologic/Lymphatic: Hematologic/Lymphatic: Reports no additional hematologic/lymphatic complaints and Reports as per HPI Allergic/Immunologic: Allergic/Immunologic: Reports no additional allergic/immunologic complaints and Reports as per HPI [facility] Past Medical History Medical History Alcohol abuse Pancreatitis Family History Family History Grandparent Pancreatic cancer both maternal and paternal side Social History Social History Smoking packs per day: 0.5 Smoking cigarettes per day: 10.0 Years smoked: 15 Smoking pack-years: 7.50 Smoking status: Never smoker Tobacco type: cigarettes Second hand tobacco smoke exposure: No Alcohol intake: never Drinks per week: 35 Substance use: never Substance use type: does not use Last use: 06/02/23 Do You Feel Safe in your Home?: Yes Lack of Transportation: No Lack of Food: Never True Current Housing: I Have Housing Concerned About Future Housing: No D
--- NOTE | 2023-07-27 23:13 | ECG_ITS ---
Measurements Intervals [place] Rate: 72 P: 60 CO: 127 QRS: 61 QRSD: 86 T: 63 QT: 411 QTc: 450 Interpretive Statements SINUS RHYTHM NORMAL ECG COMPARED TO ECG 07/06/2023 16:11:05 SINUS RHYTHM NOW PRESENT Electronically Signed On 07-28-2023 8:20:11 [employer] by Bartolo Flores D.O.
[2023-07-27 23:33] LABS: Basophils Absolute Auto 0.14 K/mm3 (0.00-0.10); Eosinophils Absolute Auto 0.32 K/mm3 (0.02-0.50); Eosinophils Percent Auto 4.5 % (1.0-6.0); Hematocrit 36.8 % (35.0-49.0); Hemoglobin 11.6 g/dL (12.0-15.0); Immature Granulocyte Absolute 0.03 K/mm3 (0.00-0.00); Immature Granulocyte Percent A 0.4 % (0.0-0.0); Lymphocytes Absolute Auto 2.63 K/mm3 (1.10-4.50); Lymphocytes Percent Auto 37.4 % (18.0-42.0); Mean Corpuscular HGB Conc 31.5 g/dL (32.0-36.0); Mean Corpuscular Hemoglobin 28.9 pg (27.0-31.0); Mean Corpuscular Volume 91.8 fL (78.0-102.0); Mean Platelet Volume 8.3 fl (9.2-11.8); Monocytes Absolute Auto 0.49 K/mm3 (0.10-0.90); Neutrophils Absolute Auto 3.4 K/mm3 (1.7-7.2); Neutrophils Percent Auto 48.7 % (50.0-70.0); Platelet Count Result 492 K/mm3 (150-420); Red Blood Count 4.01 M/mm3 (4.20-5.40); Red Cell Distribution Width 18.7 % (11.6-14.4)
[2023-07-27 23:42] LABS: INR 1.2; Prothrombin Time 12.8 Seconds (9.50-12.10)
[2023-07-27 23:43] LABS: Ethanol 220 mg/dL (0-6)
[2023-07-27] MEDS: THIAMINE HCL 200 MG/2 ML VIAL 100 MG IV PUSH (23:44)
[2023-07-27] MEDS: LACTATED RINGERS 500 ML 999 ML IV CONT (23:44)
[2023-07-27 23:49] LABS: Alanine Aminotransferase 115 U/L (14-59); Albumin Level 3.3 g/dL (3.4-5.0); Alkaline Phosphatase 141 U/L (46-116); Ammonia 32 umol/L (11-32); Anion Gap 13 mmol/L (8-16); Aspartate Amino Transferase 188 U/L (15-37); Bilirubin,Total 0.6 mg/dL (0.00-1.00); Blood Urea Nitrogen 5 mg/dL (7-18); Calcium 8.3 mg/dL (8.5-10.1); Carbon Dioxide 27 mmol/L (21-32); Chloride 100 mmol/L (98-108); Estimated CRCL calculation 73 ml/min; Estimated Glomerular Filt Rate > 60; Glucose 96 mg/dL (70-99); Osmolality Calculated 287 mOsm/kg (285-295); Potassium 3.2 mmol/L (3.5-5.1); Sodium 140 mmol/L (136-145); Total Protein 6.9 g/dL (6.4-8.2); Troponin I 5.9 ng/L (0.00-60.4)
[2023-07-28 00:09] LABS: Lipase 205 U/L (16-77)
[2023-07-28 00:14] LABS: Appearance Urine Clear (Clear); Bilirubin Urine Negative (Negative); Blood Urine Negative (Negative); Color Urine Yellow (Yellow); Glucose Urine UA Negative (Negative); Ketones Urine Negative (Negative); Leukocyte Esterase Ur Negative LEU/UL (Negative); Nitrate Urine Negative (Negative); Protein Urine Negative (Negative)
[2023-07-28 00:18] LABS: Add Urine Microscopic? NO; Pregnancy On Board Control Positive; Urine Pregnancy Test Negative
[2023-07-28 00:21] LABS: Amphetamine Screen Urine Negative (Negative); Barbiturate Screen Urine Negative (Negative); Benzodiazepines Screen Urine Positive (Negative); Cannabinoid Screen Urine Positive (Negative); Cocaine Screen Urine Positive (Negative); Methadone Screen Urine Negative (Negative); Opiate Screen Urine Negative (Negative); Phencyclidine Screen Urine Negative (Negative)
[2023-07-28] MEDS: diazePAM (*CRX) 5 MG TABLET PO (00:48)
== END 2023-07-28 01:17 | disposition home or self-care (01) ==
PROVIDERS: Emergency Provider Internal Medicine Critical Care Medicine; PCP Physician Assistant
DX: F10.932 Alcohol use, unspecified with withdrawal with perceptual disturbance (principal); K70.10 Alcoholic hepatitis without ascites; F19.10 Other psychoactive substance abuse, uncomplicated; F17.210 Nicotine dependence, cigarettes, uncomplicated; Y90.7 Blood alcohol level of 200-239 mg/100 ml
CPT/HCPCS: 36415; 70450; 80048; 80053; 80307; 81003; 81025; 82140; 83690; 84484; 85025; 85610; 93005; 96361; 96372; 96374; 99284; A9270; J0780; J3411; J7120

== ENCOUNTER 2023-07-28 05:21 | Emergency (ER) | payer OTHER, SELFPAY ==
[2023-07-28 05:22] VITALS: BP 146/100; PULSE 85; RESP 18; TEMP 36.8; O2SAT 97
--- NOTE | 2023-07-28 05:36 | ED.NAVMDI ---
HPI - Nausea/Vomiting/Diarrhea General Chief complaint: Nausea/Vomiting/Diarrhea Stated complaint: vomiting Source: patient Mode of arrival: ambulatory Limitations: no limitations History of Present Illness HPI Narrative: 33-year-old female with a history of alcoholism, smoking, polysubstance abuse, pancreatitis, alcoholic hepatitis presented to the ER by EMS 5 hours ago for alcohol intoxication/ withdrawal, cocaine abuse for altered mental status. The patient had a CT of the head which was unremarkable. She had blood work which was significant for a blood alcohol level of 220 and a potassium of 3.2. she was noted to have a lipase of 205 and chronically elevated LFTs. The patient received 500 mL of LR along with IV thiamine and Valium 5 mg. The patient returns to the ER with complaints of -- recurrent vomiting. Vomitus is clear. no hematemesis. She had 10 episodes of vomiting. -- epigastric pain patient denied fever. No diarrhea. MD elicited complaint: vomiting and abdominal pain Onset (ago): hour(s) ( 4 hours) Description of vomiting: food contents and watery Associated nausea: Yes Associated abdominal pain: Yes Location of pain: epigastric Pain consistency: constant Quality: aching Exacerbating factors: none Relieving factors: none Associated symptoms: denies other symptoms Related Data Allergies Allergy/AdvReac Type Severity Reaction Status Date / Time No Known Allergies Allergy Mild Verified 07/28/23 05:22 Review of Systems Review of Systems: All systems reviewed & are unremarkable except as noted in HPI and below Constitutional: Constitutional: Reports as per HPI and Reports no additional constitutional complaints Eyes: Eyes: Reports as per HPI and Reports no additional eye complaints ENT: Reports system reviewed and no additional complaints, except as documented and Reports as per HPI Cardiovascular: Cardiovascular: Reports as per HPI and Reports no additional cardiovascular complaints Respiratory: Respiratory: Reports as per HPI and Reports no additional respiratory complaints Gastrointestinal: Gastrointestinal: Reports as per HPI, Reports no additional gastrointestinal complaints, Reports abdominal pain, Reports nausea and Reports vomiting Genitourinary: Genitourinary: Reports no additional female genitourinary complaints and Reports as per HPI Musculoskeletal: Musculoskeletal: Reports no additional musculoskeletal complaints and Reports as per HPI Integumentary/Breasts: Skin/Breast: Reports system reviewed and no additional complaints, except as docu and Reports as per HPI Neurologic: Reports system reviewed and no additional complaints, except as documented and Reports as per HPI Psychiatric: Psychiatric: Reports no additional psychiatric complaints and Reports as per HPI Endocrine: Endocrine: Reports no additional endocrine complaints and Reports as per HPI Hematologic/Lymphatic: Hematologic/Lymphatic: Reports no additional hematologic/lymphatic complaints and Reports as per HPI Allergic/Immunologic: Allergic/Immunologic: Reports no additional allergic/immunologic complaints and Reports as per HPI [facility] Past Medical History Medical History Alcohol abuse Pancreatitis Family History Family History Grandparent Pancreatic cancer both maternal and paternal side Social History Social History Smoking packs per day: 0.5 Smoking cigarettes per day: 10.0 Years smoked: 15 Smoking pack-years: 7.50 Smoking status: Never smoker Tobacco type: cigarettes Second hand tobacco smoke exposure: No Alcohol intake: never Drinks per week: 35 Substance use: never Substance use type: does not use Last use: 06/02/23 Do You Feel Safe in your Home?: Yes Lack of Transportation: No Lack of Food: Never True Melissa
[2023-07-28] MEDS: PROCHLORPERAZINE EDISYLATE 10 MG/2 ML VIAL IM (06:01)
[2023-07-28] MEDS: PANTOPRAZOLE 40 MG TABLET PO (06:01)
[2023-07-28] MEDS: LORazepam (*CRX) 1 MG TABLET 2 MG PO (06:01)
[2023-07-28 06:05] LABS: Basophils Absolute Auto 0.12 K/mm3 (0.00-0.10); Eosinophils Absolute Auto 0.35 K/mm3 (0.02-0.50); Eosinophils Percent Auto 5.9 % (1.0-6.0); Hematocrit 34.6 % (35.0-49.0); Hemoglobin 11.2 g/dL (12.0-15.0); Immature Granulocyte Absolute 0.01 K/mm3 (0.00-0.00); Immature Granulocyte Percent A 0.2 % (0.0-0.0); Lymphocytes Absolute Auto 1.37 K/mm3 (1.10-4.50); Lymphocytes Percent Auto 23.3 % (18.0-42.0); Mean Corpuscular HGB Conc 32.4 g/dL (32.0-36.0); Mean Corpuscular Hemoglobin 29.8 pg (27.0-31.0); Mean Platelet Volume 8.3 fl (9.2-11.8); Monocytes Absolute Auto 0.46 K/mm3 (0.10-0.90); Monocytes Percent Auto 7.8 % (2.0-11.0); Neutrophils Absolute Auto 3.6 K/mm3 (1.7-7.2); Neutrophils Percent Auto 60.8 % (50.0-70.0); Platelet Count Result 407 K/mm3 (150-420); Red Blood Count 3.76 M/mm3 (4.20-5.40); Red Cell Distribution Width 18.6 % (11.6-14.4); White Blood Count 5.9 K/mm3 (4.8-10.8)
[2023-07-28 06:16] LABS: Anion Gap 8 mmol/L (8-16); Blood Urea Nitrogen 6 mg/dL (7-18); Carbon Dioxide 30 mmol/L (21-32); Chloride 100 mmol/L (98-108); Estimated CRCL calculation 81 ml/min; Estimated Glomerular Filt Rate > 60; Glucose 108 mg/dL (70-99); Osmolality Calculated 284 mOsm/kg (285-295); Potassium 3.2 mmol/L (3.5-5.1); Sodium 138 mmol/L (136-145)
[2023-07-28 06:17] LABS: Lipase 178 U/L (16-77)
[2023-07-28 06:21] LABS: Calcium 8.5 mg/dL (8.5-10.1)
[2023-07-28 06:31] VITALS: BP 125/91; PULSE 85; RESP 18; O2SAT 97
== END 2023-07-28 07:25 | disposition home or self-care (01) ==
PROVIDERS: Emergency Provider Internal Medicine Critical Care Medicine; PCP Physician Assistant
DX: F10.930 Alcohol use, unspecified with withdrawal, uncomplicated (principal); K29.20 Alcoholic gastritis without bleeding; F17.210 Nicotine dependence, cigarettes, uncomplicated
CPT/HCPCS: 36415; 80048; 83690; 85025; 96372; 99283; A9270; J0780

== ENCOUNTER 2025-06-07 11:35 | Emergency (ER) | payer OTHER, SELFPAY ==
[2025-06-07 11:46] VITALS: BP 124/76; PULSE 84; RESP 16; TEMP 36.4; O2SAT 99
--- NOTE | 2025-06-07 12:34 | PC.NURSE ---
pt unable to provide u/a at this time, states will attempt later, declined straight cath
[2025-06-07 12:43] LABS: Hematocrit 40.0 % (37.0-47.0); Hemoglobin 13.1 g/dL (12.0-15.0); Immature Granulocyte Percent A 0.2 % (0-0.5); Lymphocytes Absolute Auto 1.83 K/mm3 (0.9-3.2); Mean Corpuscular HGB Conc 32.8 g/dl (32-36); Mean Corpuscular Hemoglobin 29.0 pg (26-34); Mean Corpuscular Volume 88.7 fl (80-100); Nucleated Red Blood Cells Absolute Auto 0.000 K/mm3 (0.0-0.012); Nucleated Red Blood Cells Perc 0.0 % (0.0-0.2); Platelet Count Result 329 k/mm3 (150-375); Red Blood Count 4.51 M/mm3 (4.2-5.4); White Blood Count 8.2 K/mm3 (4.5-10.0)
[2025-06-07 12:51] LABS: Acetaminophen < 10 ug/mL (10-30); Salicylate < 1.0 mg/dL (2-20)
[2025-06-07 13:27] LABS: BEDSIDEPREGUCG Negative (Negative)
[2025-06-07 13:28] LABS: Thyroid Stimulating Hormone Reflex 0.446 uIU/mL (0.465-4.68)
--- OUTSIDE RECORDS SUMMARY | 2025-06-07 13:30 | XMS_ITS | Clinical Summary ---
Author Organization [facility] Address [address] [place] [id number] Care Team Providers Care Sampling Expert Name Role Phone None, Provider MD Primary Care Provider Unavaila ble Allergies No known active allergies Medications DULoxetine (CYMBALTA) 60 MG capsule Take 1 capsule (60 mg total) by mouth daily. Active OLANZapine (ZYPREXA) 10 MG tablet Take 1 tablet (10 mg total) by mouth daily. Active LORazepam (ATIVAN) 1 MG tablet Take 1 tablet (1 mg total) by mouth every 8 (eight) hours as needed (anxiety). 06/07/2024 Active Active Problems Problem Noted Date Diagnosed Date Major depressive disorder, single episode, unspe cified Anxiety disorder, unspecified Schizophrenia, unspecified Encounters Date Type Department Care Team Description 04/03/2025 9:57 AM CDT - 04/03/2025 10:57 PM CDT Emergency [facility] [place] [address] Gerardo Singleton MD Psychiatric Problem Discharge Disposition: Home or Self Care (Routine Discharge) 04/03/2025 Travel from Last 3 Months Social History Tobacco Use Types Packs/Day Years Used Date Smoking Tobacco: Former Cigarettes Tobacco Cessation:Counseling Given: Not Answered Alcohol Use Standard Drinks/Week Comments Yes 0 (1 standard drink = 0.6 oz pur e alcohol) Comments Unknown Sex and Gender Information Value Date Recorded Sex Assigned at Female 04/03/2025 11:05 AM CDT Legal Sex 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 Gender Identity Not on file Sexual Orientation Not on file Last Filed Vital Signs Vital Sign Reading Time Taken Comments Blood Pressure 122/81 04/03/2025 9:00 PM CDT Pulse 74 04/03/2025 2:13 PM CDT Temperature 36.7 C (98.1 F) 04/03/2025 10:00 AM CDT Respiratory Rate 20 04/03/2025 2:13 PM CDT Oxygen Saturation 97% 04/03/2025 9:00 PM CDT Inhaled Oxygen Concentration - - Weight 54.4 kg (120 lb) 04/03/2025 10:00 AM CDT Height 157.5 cm (5' 2) 04/03/2025 10:00 AM CDT Body Mass Index 21.95 04/03/2025 10:00 AM CDT Plan of Treatment Health Maintenance Due Date Last Done Comments Cervical Cancer Screening Pap Smear (Age 30 to 64) Every 3 Years 1992 Annual Physical 1995 Hepatitis C 2010 Hepatitis B Vaccines (1 of 3 - 19+ 3-dose series) 2011 HPV Vaccines (1 - 3-dose SCDM series) 2019 Cervical Cancer Screening Pap with HPV Testing (Age 30 to 64) Every 5 Years 2022 Cervical Cancer Screening with HPV 2022 COVID-19 Vaccine ( season) 2025 09/09/2021 Influenza Adult (#1) 2025 05/09/2020 DTaP, Tdap and Td Vaccines (5 - Td or Tdap) 06/25/2032 06/25/2022, 09/25/2019, 03/26/2017, Additional history exists Hepatitis A Vaccines Aged Out No long er eligible based on patient's age to complete this topic Meningococcal B Vaccine Aged Out No l onger eligible based on patient's age to complete this topic Meningococcal Vaccine Aged Out No nicky tony eligible based on patient's age to complete this topic Pneumococcal Vaccine: Pediatrics (0 to 5 Years) and At-Risk Patients (6 to 49 Years) Aged Out No longer eligible based on patient's age to complete this topic RSV Immunizations Under 20 Months Aged Out No longer eligible based on patient's age to complete this topic Procedures Procedure Name Priority Date/Time Associated Diagnosis Comments HC DRUG SCREEN PRESUMPTIVE INSTRUMENT T1 STAT 04/03/2025 10:31 AM CDT HC DRUG SCREEN PRESUMPTIVE INSTRUMENT T2 STAT 04/03/2025 10:31 AM CDT HC DRUG SCREEN PRESUMPTIVE INSTRUMENT T3 STAT 04/03/2025 10:31 AM CDT HC THYROID STIMULATING HORM STAT 04/03/2025 10:31 AM CDT HC CREATINE KINASE (CPK) TOTAL STAT 04/03/2025 10:31 AM CDT HC TROPONIN QN STAT 04/03/2025 10:31 AM CDT HC COMPREHENSIVE METABOL PANEL STAT 04/03/2025 10:31 AM CDT HC CBC AUTO W/AUTO DIFF STAT 04/03/2025 10:31 AM CDT DRUG SCREEN RAPID STAT 04/03/2025 10: 16 AM CDT HC URINE TEST STAT 04/03/2025 10:16 AM CDT HC URINALYSIS AUTO W/MICRO STAT 04/03/2025 10:16 AM CDT from Last 3 Months Results * (ABNORMAL) COMPREHENSIVE METABOLIC PANEL (04/03/2025 10:31 AM CDT) SODIUM S/P/B 137 136 - 145 MMOL/L 04/03/2025 11:17 AM CDT [facility] POTASSIUM S/P/B 3.0(L) 3.5 - 5.1 MMOL/L 04/03/2025 11:17 AM CDT [facility] CHLORIDE S/P/B 103 98 - 107 MMOL/L 04/03/2025 11:17 AM CDT [facility] CO2 25.1 21.0 - 32.0 MMOL/L 04/03/2025 11:17 AM CDT [facility] GLUCOSE 146(H) 70 - 99 MG/DL 04/03/2025 11:17 AM CDT [facility] Comment: FASTING GLUCOSE 100 TO 125 MG/DL IS CONSISTENT WITH IMPAIRED FASTING GLUCOSE. FASTING GLUCOSE >125 MG/DL IS CONSISTENT WITH DIABETES. RANDOM GLUCOSE >200 MG/DL WITH HYPERGLYCEMIC SYMPTOMS IS CONSISTENT WITH DIABETES. PER ADA GUIDELINES BUN 6 6 - 24 MG/DL 04/03/2025 11:17 AM [facility] CREATININE S/P/B 0.82 0.55 - 1.02 MG/DL 04/03/2025 11:17 AM [facility] CALCIUM S/P/B 9.5 8.4 - 10.5 MG/DL 04/03/2025 11:17 AM [facility] BILIRUBIN TOTAL S/P/B 0.5 0.2 - 1.0 MG/DL 04/03/2025 11:17 AM [facility] Comment: THIS ASSAY IS NOT RECOMMENDED FOR PATIENTS UNDERGOING TREATMENT WITH ELTROMBOPAG DUE TO THE POTENTIAL FOR FALSELY ELEVATED RESULTS. ALKALINE PHOSPHATASE S/P/B 83 37 - 98 U/L 04/03/2025 11:17 AM [facility] AST 16 15 - 37 U/L 04/03/2025 11:17 AM [facility] ALT 18 14 - 59 U/L 04/03/2025 11:17 AM [facility] TOTAL PROTEIN S/P/B 7.2 6.4 - 8.2 G/DL 04/03/2025 11:17 AM [facility] ALBUMIN S/P/B 4.0 3.4 - 5.0 G/DL 04/03/2025 11:17 AM [facility] ANION GAP 8.9 5.0 - 15.0 MMOL/L 04/03/2025 11:17 AM [facility] OSMOLALITY (CALC) 284 MOSM/KG 025 11:17 AM [facility] Comment:REFERENCE RANGE NOT ESTABLISHED GFR ESTIMATE >90 >89 ML/MIN/1. 73 M2 04/03/2025 11:17 AM [facility] GFR NOTES GFR REFERENCE S: 04/03/2025 11:17 AM [facility] Comment: THE ESTIMATED GFR IS CALCULATED USING THE 2020 CKD-EPI EQUATION. THE FOLLOWING CATEGORIES FOR GRADING RENAL FUNCTION ARE RECOMMENDED BY THE INTERNATIONAL SOCIETY OF NEPHROLOGY (KDIGO 2012 CLINICAL PRACTICE GUIDELINE). G1,NORMAL OR HIGH: >89 ml/min/1.73 m2 G2,MILDLY DECREASED: 60-89 ml/min/1.73 m2 G3A,MILDLY TO MODERATELY DECREASED: 45-59 ml/min/1.73 m2 G3B,MODERATELY TO SEVERELY DECREASED: 30-44 ml/min/1.73 m2 G4,SEVERELY DECREASED: 15-29 ml/min/1.73 m2 G5,KIDNEY FAILURE: <15 ml/min/1.73 m2 04/03/2025 10:3 1 AM CDT us Gerardo Singleton MD LABORATORY Final Resul t [facility] [address] [place] [address], * (ABNORMAL) CBC W/DIFF AUTOMATED (04/03/2025 10:31 AM CDT) WBC 9.93 4.00 - 10.80 x10'3/uL 04/03/2025 12:36 PM CDT [facility] RBC 3.77(L) 4.10 - 5.40 x10'6/uL 04/03/2025 12:36 PM CDT [facility] HGB 10.6(L) 12.0 - 16.0 G/DL 04/03/2025 12:36 PM CDT [facility] HCT 31.9(L) 36.0 - 47.0 % 04/03/2025 12:36 PM CDT [facility] MCV 84.6 78.0 - 100.0 FL 04/03/2025 12:36 PM CDT [facility] MCH 28.1 27.0 - 31.0 PG 04/03/2025 12:36 PM CDT [facility] MCHC 33.2 33.0 - 36.0 G/DL 04/03/2025 12:36 PM CDT [facility] RDW 14.0 11.5 - 14.5 % 04/03/2025 12:36 PM CDT [facility] PLT 331 150 - 350 x10'3/uL 04/03/2025 12:36 PM CDT [facility] MPV 8.7 7.4 - 10.4 FL 04/03/2025 12:36 PM CDT [facility] CBC COMMENT NORMAL REFERENCE RANGE NOT ESTABLISHED FOR THE PROPORTIONAL LEUKOCYTE DIFFERENTIAL. 04/03/2025 12:36 PM CDT [facility] NEUTROPHILS % 74.0 % 04/03/2025 12:36 PM CDT [facility] LYMPHOCYTES % 19.5 % 04/03/2025 12:36 PM CDT [facility] MONOCYTES % 5.6 % 04/03/2025 12:36 PM CDT [facility] EOSINOPHILS % 0.2 % 04/03/2025 12:36 PM CDT [facility] BASOPHILS % 0.5 % 04/03/2025 12:36 PM CDT [facility] IMMATURE GRANS % 0.2 % 04/03/20 12:36 PM CDT [facility] NRBC % 0.0 % 04/03/2025 12:36 PM CDT [facility] ABS. NEUTROPHILS 7.34 1.60 - 8.30 x10'3/uL 04/03/2025 12:36 PM CDT [facility] ABS. LYMPHOCYTES 1.94 0.80 - 4.70 x10'3/uL 04/03/2025 12:36 PM CDT [facility] ABS. MONOCYTES 0.56 0.00 - 1.50 x10'3/uL 04/03/2025 12:36 PM CDT [facility] ABS. EOSINOPHILS 0.02 0.00 - 0.40 x10'3/uL 04/03/2025 12:36 PM CDT [facility] ABS. BASOPHILS 0.05 0.00 - 0.20 x10'3/uL 04/03/2025 12:36 PM CDT [facility] ABS. IMMATURE GRANULOCYTES 0.02 0.00 - 0.03 x10'3/uL 04/03/2025 12:36 PM CDT [facility] ABS. NUCLEATED RBC'S 0.00 0.00 - 0.01 x10'3/uL 04/03/2025 12:36 PM CDT [facility] 04/03/2025 10:3 1 AM CDT us Gerardo Singleton MD LABORATORY Final Resul t Performing Organization Address City/[facility]/ZIP Co de Phone Number [facility] [address] [place] [address], * TROPONIN, QUANT (04/03/2025 10:31 AM CDT) TROPONIN I HIGH SENSITIVITY 6 0 - 51 ng/L 04/03/2025 11:17 AM CDT [facility] 04/03/2025 10:3 1 AM CDT us Gerardo Singleton MD LABORATORY Final Resul t Performing Organization Address [facility] de Phone Number [facility] [address] [place] [address], * THYROID STIM HORMONE, TSH (04/03/2025 10:31 AM CDT) TSH 0.473 0.358 - 3.740 uIU/ML 04/03/2025 11:17 AM CDT [facility] Comment: ASSAY PERFORMED BY CHEMILUMINESCENT IMMUNOASSAY METHODOLOGY USING SIEMENS DIMENSION REAGENT. PATIENT RESULTS DETERMINED BY ASSAYS FROM DIFFERENT MANUFACTURERS AND/OR BY DIFFERENT METHODS MAY NOT BE COMPARABLE. 04/03/2025 10:3 1 AM CDT us Gerardo Singleton MD LABORATORY Final Resul t Performing Organization Address City/[facility] Co de Phone Number [facility] [address] [place] [address], * SALICYLATE (04/03/2025 10:31 AM CDT) SALICYLATES 3.7 2.8 - 20.0 MG/DL 04/03/2025 11:17 AM CDT [facility] 04/03/2025 10:3 1 AM CDT us Gerardo Singleton MD LABORATORY Final Resul t Performing Organization Address City/[facility]/ZIP Co de Phone Number [facility] [address] [place] [address], * ETHANOL (04/03/2025 10:31 AM CDT) ALCOHOL S/P/B <0.003 <0.003 G/DL 04/03/2025 11:17 AM CDT [facility] 04/03/2025 10:3 1 AM CDT us Gerardo Singleton MD LABORATORY Final Resul t Performing Organization Address [facility] Co de Phone Number [facility] [address] [place] [address], * CK (CPK) (04/03/2025 10:31 AM CDT) CPK 184 26 - 192 U/L 04/03/2025 11:17 AM CDT [facility] 04/03/2025 10:3 1 AM CDT us Gerardo Singleton MD LABORATORY Final Resul t Performing Organization Address [facility] de Phone Number [facility] [address] [place] [address], * (ABNORMAL) ACETAMINOPHEN (04/03/2025 10:31 AM CDT) ACETAMINOPHEN S/P/B 0.0(L) 10.0 - 30.0 MCG/ML 04/03/2025 11:17 AM CDT [facility] 04/03/2025 10:3 1 AM CDT us Gerardo Singleton MD LABORATORY Final Resul t [facility] [address] [place] [address], * (ABNORMAL) DRUG SCREEN RAPID (04/03/2025 10:16 AM CDT) Pathologist [facility] CANNABINOIDS SCREEN (U) POSITIVE(A) NEGATIVE 04/03/2025 10:34 AM CDT [facility] PHENCYCLIDINE PCP (U) NEGATIVE NEGATIVE 04/03/2025 10:34 AM CDT [facility] COCAINE METABOLITES (U) NEGATIVE NEGATIVE 04/03/2025 10:34 AM CDT [facility] METHAMPHETAMINE SCREEN (U) NEGATIVE NEGATIVE 04/03/2025 10:34 AM CDT [facility] OPIATE SCREEN (U) NEGATIVE NEGATIVE 025 10:34 AM CDT [facility] AMPHETAMINE SCREEN (U) NEGATIVE NEGATIVE 04/03/2025 10:34 AM CDT [facility] BENZODIAZEPINES SCREEN (U) NEGATIVE NEGATIVE 04/03/2025 10:34 AM CDT [facility] TRICYCLIC ANTIDEPRESSANT SCREEN (U) NEGATIVE NEGATIVE 04/03/2025 10:34 AM CDT [facility] METHADONE (U) NEGATIVE NEGATIVE 04/03/2025 10:34 AM CDT [facility] BARBITURATES SCREEN (U) NEGATIVE NEGATIVE 04/03/2025 10:34 AM CDT [facility] OXYCODONE SCREEN (U) NEGATIVE NEGATIVE 04/03/2025 10:34 AM CDT [facility] URINE TOX COMMENT THIS TEST METHODOLOGY IS DESIGNED AND OFFERED A RAPID TURNAROUND, QUALITATIVE SCREENING PROCEDURE TO AID IN THE IMMEDIATE MEDICAL ASSESSMENT OF PATIENTS SUSPECTED OF SUBSTANCE ABUSE. 04/03/2025 10:17 AM CDT [facility] Comment: CLINICAL CONSIDERATION AND PROFESSIONAL JUDGMENT MUST BE APPLIED TO ANY DRUG OF ABUSE TEST RESULT, BOTH POSITIVE AND NEGATIVE. CONFIRMATORY QUANTITATIVE RESULTS ARE AVAILABLE THROUGH OUR REFERENCE LABORATORY. URINE SPECIMEN / Unknown 04/03/2025 10:16 AM CDT us Gerardo Singleton MD URINE ORDERABLES Final Resu lt [facility] [address] [place] [address], * (ABNORMAL) URINALYSIS (04/03/2025 10:16 AM CDT) COLOR (U) YELLOW 04/03/2025 10:37 AM CDT [facility] TRANSPARENCY CLEAR 04/03/2025 10:37 AM CDT [facility] SPECIFIC GRAVITY (U) 1.010 1.000 - 1.025 04/03/2025 10:37 AM CDT [facility] U PH 7.0 5.0 - 8.0 04/03/2025 10:37 AM CDT [facility] LEUKOCYTES (U) NEGATIVE NEGATIVE 04/03/2025 10:37 AM CDT [facility] NITRITES NEGATIVE NEGATIVE 04/03/2025 10:37 AM CDT [facility] PROTEIN RANDOM (U) NEGATIVE NEGATIVE 04/03/2025 10:37 AM CDT [facility] GLUCOSE (U) NEGATIVE NEGATIVE 04/03/2025 10:37 AM CDT [facility] KETONES MG/DL (U) TRACE(A) NEGATIVE 04/03/2025 10:37 AM CDT [facility] UROBILINOGEN 0.2 <1.0 EU/DL 04/03/2025 10:37 AM CDT [facility] BILIRUBIN (U) NEGATIVE NEGATIVE 04/03/2025 10:37 AM CDT [facility] BLOOD (U) NEGATIVE NEGATIVE 04/03/2025 10:37 AM CDT [facility] WBC/HPF 0-5 0 - 5 /HPF 04/03/2025 10:37 AM CDT [facility] RBC/HPF 0-5 0 - 5 /HPF 04/03/2025 10:37 AM CDT [facility] EPI/LPF MODERATE /LPF 04/03/2025 10:37 AM CDT [facility] BACTERIA (U) 1+ /HPF 04/03/2025 10:37 AM CDT [facility] URINE SPECIMEN OBTAINED BY CLEAN CATCH PROCEDURE / Unknown 04/03/2025 10:16 AM CDT us Gerardo Singleton MD URINE ORDERABLES Final Resu lt Performing Organization Address City/[facility]/ZIP Co de Phone Number [facility] [address] [place] [address], [place] [phone] * TEST URINE (04/03/2025 10:16 AM CDT) URINE HCG TEST NEGATIVE 04/03/2025 10:27 AM CDT [facility] SPECIFIC GRAVITY 1.010 04/03/2025 10:27 AM CDT [facility] URINE SPECIMEN FROM URETHRA / Unknown 04/03/2025 10:16 AM CDT us Gerardo Singleton MD URINE ORDERABLES Final Resu lt Performing Organization Address [facility]/ZIP Co de Phone Number [facility] [address] [place] [address], [place] [phone] from Last 3 Months Insurance [place] [employer] Care Teams Sampling Expert Relationship Specialty Start Date End Date None, Provider, MD PCP - General UNKNOWN PHYSICIAN SPECIALTY 07/08/23
--- OUTSIDE RECORDS SUMMARY | 2025-06-07 13:30 | XMS_ITS | Clinical Summary ---
Author Organization [facility] [employer] Address [address] [place] [address] Care Team Providers Care Store Gift Wrap Associate Name Role Phone Gerardo Quevedo MD Primary Care Provider [phone] Source Comments [facility] [employer],non-owned Affiliates and Associated Physician Practices is amultiple site organization consisting of ambulatory clinics and hospital sitesin [place], [place], [place] and [place]. This disclosure is being madepursuant to the Care Everywhere program and may not contain all information available regarding this patient. Last updated 18.[employer] Allergies No known active allergies Medications * This document contains information received from the source organization and may not represent a complete record from that organization. * Be aware that medications may not be up to date on this document. Alwaysverify current medications with the patient. Vit-DSS-Fe Cbn-FA ( AD PO) Active cetirizine (ZYRTEC) 10 MG tablet Take 1 tablet by mouth once daily 90 tablet 4 0 Active Additional Information Patient not taking.Reported on 04/14/2021 DULoxetine (CYMBALTA) 60 MG capsuleIndicati ons:Major Depressive Disorder Take 60 mg by mouth once daily Reasons: Major Depressive Disorder Active hydrOXYzine HCl (ATARAX) 25 MG tabletIndicatio ns:Anxiety Take 1 (one) tablet by mouth 2 times daily as needed (anxiety) Reasons: Feeling Anxious 60 tablet 3 2 Active risperiDONE (RISPERDAL) 0.5 MG tablet Take 1 (one) tablet by mouth at bedtime 30 tablet 2 Active traZODone (DESYREL) 50 MG tablet Take 1 (one) tablet by mouth at bedtime 30 tablet 2 Active Active Problems Problem Noted Date Diagnosed Date Major depressive disorder, recurrent 04/14/2021 Generalized anxiety disorder 04/14/2021 Social History Tobacco Use Types Packs/Day Years Used Date Smoking Tobacco: Never Smokeless Tobacco: Never Tobacco Cessation:Counseling Given: Yes PHQ-2 Answer Date Recorded PHQ2 TOTAL SCORE 2 04/25/2021 Comments No Sex and Gender Information Value Date Recorded Sex Assigned at Not on file 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 Gender Identity Not on file Sexual Orientation Not on file Last Filed Vital Signs Vital Sign Reading Time Taken Comments Blood Pressure 102/71 04/14/2021 10:00 AM CDT Pulse 77 04/14/2021 10:00 AM CDT Temperature 37 C (98.6 F) 04/14/2021 10:00 AM CDT Respiratory Rate 17 04/14/2021 10:00 AM CDT Oxygen Saturation 98% 08/21/2019 3:33 PM AIRCRAFT STRUCTURAL REPAIRER Inhaled Oxygen Concentration - - Weight 54.4 kg (120 lb) 04/14/2021 10:00 AM CDT Height 157.5 cm (5' 2) 04/14/2021 10:00 AM CDT Body Mass Index 21.95 04/14/2021 10:00 AM CDT Plan of Treatment Health Maintenance Due Date Last Done Comments HIV SCREENING 2007 HEPATITIS C SCREENING 03/12/2010 DTAP/TDAP/TD VACCINES (1 - Tdap) 2011 HEPATITIS B VACCINE (1 of 3 - 19+ 3-dose series) 2011 Cervical Cancer Screening 2013 PAP SMEAR 2013 HPV VACCINE (1 - 3-dose SCDM series) 2019 PAP with HPV 2022 DEPRESSION SCREENING 07/08/2024 COVID-19 VACCINE (2 - 2024-2 6 season) 2025 09/09/2021 INFLUENZA VACCINE (#1) 2025 05/09/2020 ZOSTER VACCINE (1 of 2) 2042 HIB VACCINE Aged Out No longer eligi ble based on patient's age to complete this topic MENINGOCOCCAL (Group B) VACC INE SHARED DECISION-MAKING Aged Out No longer eligibl e based on patient's age to complete this topic MENINGOCOCCAL GROUPS A/C/Y/W VACCINE Aged Out No longer eligible b ased on patient's age to complete this topic PNEUMOCOCCAL VACCINE Aged Out No long er eligible based on patient's age to complete this topic Insurance [employer] [place] Care Teams Store Gift Wrap Associate Relationship Specialty Start Date End Date Gerardo Quevedo MD PCP - General Family Medicine 06/27/18
--- OUTSIDE RECORDS SUMMARY | 2025-06-07 13:30 | XMS_ITS | Clinical Summary ---
Author Organization [facility] Address [address] [address] Phone Care Team Providers Care Bio Medical Technician Name Role Phone Byron Barnes MD Unavailable [phone] Jolene Sarkar APRN, ENROLLMENT COORDINATOR Primary Care Provi yung Allergies No known active allergies Medications propranolol (INDERAL) 10 MG Tablet Take 10 mg by mouth 3 times daily. Active hydrOXYzine (VISTARIL) 50 MG Capsule Take 50 mg by mouth every 6 hours as needed for Itching. 024 Active ondansetron (ZOFRAN-ODT) 4 MG TABLET DISPERSIBLE Take 4 mg by mouth every 8 hours as needed for Nausea - 1st line. 024 Active traZODone (DESYREL) 50 MG Tablet Take 50 mg by mouth nightly. 022 Active DULoxetine (CYMBALTA) [address] Particles Take 60 mg by mouth daily. Active apixaban (ELIQUIS) 2.5 MG Tablet Take 5 mg by mouth 2 times daily. 024 Active folic acid (FOLVITE) 1 MG Tablet Take 1 Tablet by mouth daily. 30 Tablet 024 Active hydrOXYzine (ATARAX) 25 MG Tablet Take 1 Tablet by mouth every 6 hours as needed for Anxiety (For mild anxiety - patient reported scale of 1-4.). 20 Tablet 024 Active pantoprazole (PROTONIX) 40 MG Tablet Delayed ResponseIndication s:Symptomatic Gastroesophageal Reflux Disease (Inactive) Take 1 Tablet by mouth every morning (before breakfast). Indications: Gastroesophageal Reflux Disease with Current Symptoms 30 Tablet Active senna 8.6 MG Tablet Take 2 Tablets by mouth nightly as needed for Constipation - 1st line. 30 Tablet Active thiamine (VITAMIN B1) 100 MG Tablet Take 1 Tablet by mouth daily. 30 Tablet Active naloxone HCl (Narcan) 4 MG/0.1ML Liquid 1 [place] by Nasal route as needed for Opioid Reversal. Administer in one nostril for symptoms of overdose (severe sleepiness, breathing problems, not responsive). Call 911. May repeat 1 spray in alternate nostril in 2-3 minutes if needed. 2 Each Active ondansetron (ZOFRAN-ODT) 4 MG TABLET DISPERSIBLE Take 1 Tablet by mouth every 8 hours as needed for Nausea - 1st line. 10 Tablet Active ondansetron (ZOFRAN-ODT) 4 MG TABLET DISPERSIBLE Take 1 Tablet by mouth every 8 hours as needed for Nausea - 1st line. 20 Tablet Active dicyclomine (BENTYL) 20 MG Tablet Take 1 Tablet by mouth every 6 hours. 30 Tablet 024 Active LORazepam (ATIVAN) 1 MG TabletIndications: Alcohol abuse Take 1 Tablet by mouth every 8 hours as needed for Withdrawal. 20 Tablet Active ondansetron (ZOFRAN-ODT) 4 MG TABLET DISPERSIBLE Take 1 Tablet by mouth every 8 hours as needed for Nausea - 1st line. 20 Tablet Active dicyclomine (BENTYL) 20 MG Tablet Take 1 Tablet by mouth every 6 hours. 30 Tablet Active prochlorperazine (COMPAZINE) 25 MG Suppository 1 Suppository by Rectal route every 12 hours as needed for Nausea - 1st line. 5 Suppository Active thiamine (VITAMIN B1) 100 MG Tablet Take 1 Tablet by mouth daily. 30 Tablet Active naltrexone (DEPADE) 50 MG Tablet Take 1 Tablet by mouth daily. 30 Tablet Active ondansetron (ZOFRAN-ODT) 4 MG TABLET DISPERSIBLE Take 1 Tablet by mouth every 8 hours as needed for Nausea - 1st line. 10 Tablet 025 Active dicyclomine (BENTYL) 20 MG Tablet Take 1 Tablet by mouth every 6 hours. 30 Tablet 025 Active ondansetron (ZOFRAN-ODT) 4 MG TABLET DISPERSIBLE Take 1 Tablet by mouth every 8 hours as needed for Nausea - 1st line. 20 Tablet 025 Active Active Problems Problem Noted Date Diagnosed Date Acute pancreatitis 02/05/2024 Alcohol use 03/25/2023 Pancreatitis 03/25/2023 MDD (major depressive disord er), recurrent episode, moderate 05/22/2021 ADHD (attention deficit hyperactivity disorder) Depression Hypertension Alcohol abuse Portal vein thrombosis Overview (02/05/2024): on eleiquis Anxiety Encounters Date Type Department Care Team Description 04/29/2025 Telephone [facility] [address] [id number] Madonna Martins Patient Outreach 04/29[facility]2025 [facility] [address] [place] [address] Madonna Martins Patient Outreach 04/21/2025 8:23 AM CDT - 04/21/2025 11:33 AM CDT Emergency [facility] Emergency [address] [place] [address] Víctor Crump MD Generalized abdominal pain Discharge Disposition: Discharged to home or Selfcare 04/21/2025 Travel 04/03/2025 12:12 AM CDT - 04/03/2025 4:31 AM CDT Emergency [facility] Emergency [address] [place] [address] Nikolas Esquivel MD Change in mental status Discharge Disposition: Discharged to home or Selfcare 04/03/2025 Travel 04/01/2025 3:23 AM CDT - 04/01/2025 5:15 AM CDT Emergency [facility] Emergency [address] [place] [address] Víctor Crump MD Generalized abdominal pain Discharge Disposition: Discharged to home or Selfcare 04/01/2025 Travel from Last 3 Months Immunizations Immunization Administration Dates Next Due Influenza Vaccine, Quadrivalent, PF 05/09/2020 TDAP Vaccine 09/25/2019,03/26/2017,04/07/2013 Social History Tobacco Use Types Packs/Day Years Used Date Smoking Tobacco: Never Smokeless Tobacco: Never Tobacco Cessation:Counseling Given: Not Answered Alcohol Use Standard Drinks/Week Comments Not Currently 0 (1 standard drink = 0.6 oz pur e alcohol) sober since 08/2024 [facility] Utilities Answer Date Recorded In the past 12 months has th e electric, gas, oil, or water company threatened to shut off services in your home? Patient declined 02/05/2024 PHQ-2 Answer Date Recorded Total Score - Questions 1-9 3 03/2022 Hunger Vital Sign Answer Date Recorded Within the past 12 months, y ou worried that your food would run out before you got the money to buy more. Patient declined Within the past 12 months, t he food you bought just didn't last and you didn't have money to get more. Patient declined PRAPARE - Transportation Answer Date Re corded In the past 12 months, has l ack of transportation kept you from medical appointments or from getting medications? Patient declined 02/05/2024 In the past 12 months, has l ack of transportation kept you from meetings, work, or from getting things needed for daily living? Patient declined 02/05/2024 Housing Stability Vital Sign Answer Leroy e Recorded In the last 12 months, was t here a time when you were not able to pay the mortgage or rent on time? Patient declined 02/05/20 24 In the past 12 months, how m any times have you moved where you were living? 0 02/05/2024 At any time in the past [address] [facility], were you homeless or living in a usp (including now)? Patient declined 02/05/2024 Education Answer Date Recorded What is the highest level of school you have completed or the highest degree you have received? Some college, no degree 09/12/2022 Sexually Active Control Partners Comments Not Currently Comments No Sex and Gender Information Value Date Recorded Sex Assigned at Female 03/28/2024 6:18 AM CDT Legal Sex Female 7:08 PM CDT Gender Identity Female 03/28/2024 6:18 AM CDT Sexual Orientation Not on file Last Filed Vital Signs Vital Sign Reading Time Taken Comments Blood Pressure 123/98 04/21/2025 11:31 AM CDT Pulse 80 04/21/2025 11:31 AM CDT Temperature 35.8 C (96.5 F) 04/21/2025 8:19 AM CDT Respiratory Rate 16 04/21/2025 11:3 1 AM CDT Oxygen Saturation 100% 04/21/2025 11: 31 AM CDT Inhaled Oxygen Concentration - - Weight 64.8 kg (142 lb 13.7 oz) 04/21/2025 8:19 AM CDT Height 157.5 cm (5' 2) 04/21/2025 8:19 AM CDT Body Mass Index 26.13 04/21/2025 8:19 AM CDT Plan of Treatment Health Maintenance Due Date Last Done Comments Hepatitis C Virus (HCV) Screening 1992 Varicella Immunization (1 of 2 - 13+ 2-dose series) 2005 Hepatitis B Immunization (1 of 3 - 19+ 3-dose series) 2011 Pneumococcal Immunization Combined (1 of 2 - PCV) 2011 Pap Smear 2013 Human Papillomavirus (HPV) Immunization (1 - 3-dose SCDM series) 2019 Cervical Cancer Screening (CCS) 2022 HPV/Cotest 2022 Influenza Immunization (#1) 2025 05/09/2020 SARS-COV-2 Immunization (2 - season) 2025 09/09/2021 Td Immunization Every 10 Years (Adults With 1 Tdap) 06/25/2032 06/25/2022, 09/25/2019, 03/26/2017, Additional history exists Respiratory Syncytial Virus (RSV) Immunization (Adult) (1 - 1-dose 75+ series) 2067 DTaP/Tdap/Td Immunization Discontinued 2021, 09/25/2019, 03/26/2017, Additional history exists Meningococcal Immunization (ACWY) Aged Out No longer eligible based on patient's age to complete this topic Rotavirus Immunization Aged Out No lo nger eligible based on patient's age to complete this topic Goals Goal Patient Goal Type Associated Problems Recent Progress Patient-Stated? Author to maintain physical, mental, and emotional health so I can be the best person for me and my kids Behavioral Health Improving( 1:19 PM SPORTS BOOK WRITER) Yes Sheeba Manzano LCSW Note: to maintain physical, mental, and emotional health so I can be the best person for me and my kids Goal Reviewed with: patient today Readiness to change: Thinking about making a change Department associated with goal: [facility] Steps to achieve goal: will attend individual/group therapy at least twice monthly and self disclose to have an outlet for distressing thoughts and feelings. will identify at least two ways to engage in self expression and to gain relief from distressing emotions and thoughts. will implement one other way, in addition to counseling, to engage in self expression and to gain relief from distressing emotions and thoughts. Will learn to learn warning signs that she is slipping into a depressive state before she is depressed. to have reduction of anxiety and depression symptoms. Behavioral Health Improving( 1:20 PM SPORTS BOOK WRITER) No Sheeba Manzano LCSW Note: to have reduction of anxiety and depression symptoms. Goal Reviewed with: patient today Readiness to change: Ready to change Department associated with goal: [facility] Steps to achieve goal: will attend counseling/psychotherapy sessions at least once monthly, utilizing individual and/or group sessions to express thoughts and feelings. to identify, verbalize and process at least three contributing factors/triggers to anxiety and depression. to identify and verbalize at least three actions/skills to prevent and/or cope with anxiety and depression. to put into action, at least one time weekly, for one month, an action/skill to prevent and or cope with anxiety and depression. Procedures Procedure Name Priority Date/Time Associated Diagnosis Comments SALICYLATE LEVEL STAT 04/21/2025 10:04 AM CDT ACETAMINOPHEN (TYLENOL) STAT 04/21/2025 10:04 AM CDT THYROID STIMULATING HORMONE (TSH) STAT 04/21/2025 10:04 AM CDT ETHYL ALCOHOL (ETHANOL) STAT 04/21/2025 10:04 AM CDT CMP (COMPREHENSIVE METABOLIC PANEL) STAT 04/21/2025 10:04 AM CDT MAGNESIUM (MG) STAT 04/21/2025 10:04 AM CDT LIPASE STAT 04/21/2025 10:04 AM CDT US ABDOMEN LIMITED LEVEL 3 THREE ORGAN Stat with Interpretation 04/21/2025 9:59 AM CDT URINALYSIS REFLEX IF INDICATED BY ABNORMAL RESULTS STAT 04/21/2025 9:25 AM CDT URINE DRUG SCREEN STAT 04/21/2025 9:2 5 AM CDT EKG 12 LEAD STAT 04/21/2025 9:24 AM CDT SARS-COV-2 BY MOLECULAR STAT 04/21/2025 9:15 AM CDT CBC WITH AUTO DIFFERENTIAL STAT 04/21/2025 9:05 AM CDT COMPLETE BLOOD COUNT (CBC) WITH DIFF STAT 04/21/2025 9:05 AM CDT HUMAN CHORIONIC GONADOTROPIN SCRN SERUM STAT 04/21/2025 9:05 AM CDT EKG SCAN 04/21/2025 12:00 AM CDT CBC WITH AUTO DIFFERENTIAL STAT 04/03/2025 1:21 AM CDT COMPLETE BLOOD COUNT (CBC) WITH DIFF STAT 04/03/2025 1:21 AM CDT UR TEST QUAL STAT 04/03/2025 1:14 AM CDT URINALYSIS REFLEX IF INDICATED BY ABNORMAL RESULTS STAT 04/03/2025 1:14 AM CDT URINE DRUG SCREEN STAT 04/03/2025 1:1 4 AM CDT LIPASE STAT 04/03/2025 12:41 AM CDT SALICYLATE LEVEL STAT 04/03/2025 12:41 AM CDT ACETAMINOPHEN (TYLENOL) STAT 04/03/2025 12:41 AM CDT THYROID STIMULATING HORMONE (TSH) STAT 04/03/2025 12:41 AM CDT MAGNESIUM (MG) STAT 04/03/2025 12:41 AM CDT ETHYL ALCOHOL (ETHANOL) STAT 04/03/2025 12:41 AM CDT CMP (COMPREHENSIVE METABOLIC PANEL) STAT 04/03/2025 12:41 AM CDT SARS-COV-2 BY MOLECULAR STAT 04/03/2025 12:41 AM CDT EKG 12 LEAD STAT 04/03/2025 12:21 AM CDT EKG SCAN 04/03/2025 12:00 AM CDT POCT URINE HCG () STAT 04/01/2025 4:43 AM CDT URINALYSIS REFLEX IF INDICATED BY ABNORMAL RESULTS STAT 04/01/2025 4:36 AM CDT CULTURE, URINE STAT 04/01/2025 4:36 AM CDT CBC WITH AUTO DIFFERENTIAL STAT 04/01/2025 3:48 AM CDT LIPASE STAT 04/01/2025 3:48 AM CDT MAGNESIUM (MG) STAT 04/01/2025 3:48 AM CDT CMP (COMPREHENSIVE METABOLIC PANEL) STAT 04/01/2025 3:48 AM CDT COMPLETE BLOOD COUNT (CBC) WITH DIFF STAT 04/01/2025 3:48 AM CDT from Last 3 Months Results * Acetaminophen Level (04/21/2025 10:04 AM CDT) Only the most recent of2 resultswithin the time period is included. ACETAMINOPHEN 10 10 - 30 mcg/mL 04/21/2025 10:58 AM CDT [facility] Blood Venipuncture / Unknown 04/21/2025 10:04 AM CDT 04/21/2025 10:28 AM CDT Víctor Crump MD CHEMISTRY ORDERABLES Aster l Result Performing Organization Address City/[facility]/ZIP Co de Phone Number [facility] [address] [place] [address] * Thyroid Stimulating Hormone (TSH) (04/21/2025 10:04 AM CDT) Only the most recent of2 resultswithin the time period is included. TSH 0.656 0.300 - 5.000 mIU/L 04/21/2025 11:14 AM CDT [facility] Blood Venipuncture / Unknown 04/21/2025 10:04 AM CDT 04/21/2025 10:28 AM CDT Víctor Crump MD CHEMISTRY ORDERABLES Aster l Result Performing Organization Address City/[facility]/ZIP Co de Phone Number [facility] [address] [place] [address] * (ABNORMAL) Salicylate Level (04/21/2025 10:04 AM CDT) Only the most recent of2 resultswithin the time period is included. SALICYLATE <5.0(L) 15.0 - 30.0 mg/dL 04/21/2025 10:58 AM CDT [facility] Blood Venipuncture / Unknown 04/21/2025 10:04 AM CDT 04/21/2025 10:28 AM CDT Víctor Crump MD CHEMISTRY ORDERABLES Aster l Result [facility] [address] [place] [address] * Magnesium (04/21/2025 10:04 AM CDT) Only the most recent of3 resultswithin the time period is included. MAGNESIUM 1.8 1.6 - 2.6 mg/dL 04/21/2025 10:58 AM CDT [facility] Blood Venipuncture / Unknown 04/21/2025 10:04 AM CDT 04/21/2025 10:28 AM CDT Víctor Crump MD CHEMISTRY ORDERABLES Aster l Result [facility] [address] [place] [address] * (ABNORMAL) Lipase (04/21/2025 10:04 AM CDT) Only the most recent of3 resultswithin the time period is included. LIPASE 6(L) 8 - 78 U/L 04/21/2025 10:58 AM CDT [facility] Blood Venipuncture / Unknown 04/21/2025 10:04 AM CDT 04/21/2025 10:28 AM CDT us Víctor Crump MD CHEMISTRY ORDERABLES Aster l Result Performing Organization Address City/[facility]/ZIP Co de Phone Number [facility] [address] [place] [address] * ETOH Level (04/21/2025 10:04 AM CDT) Only the most recent of2 resultswithin the time period is included. ETHANOL <10 <10 mg/dL 04/21/2025 10:58 AM CDT [facility] Blood Venipuncture / Unknown 04/21/2025 10:04 AM CDT 04/21/2025 10:28 AM CDT Narrative [facility] - 04/21/2025 10:58 AM CDT FOR MEDICAL USE ONLY Víctor Crump MD CHEMISTRY ORDERABLES Aster l Result Performing Organization Address [facility] Co de Phone Number [facility] [address] [place] [address] * (ABNORMAL) CMP (Comprehensive Metabolic Panel) (04/21/2025 10:04 AM CDT) Only the most recent of3 resultswithin the time period is included. SODIUM 138 136 - 145 mmol/L 04/21/2025 10:58 AM CDT [facility] POTASSIUM 3.4(L) 3.5 - 5.1 mmol/L 04/21/2025 10:58 AM CDT [facility] CHLORIDE 104 98 - 107 mmol/L 04/21/2025 10:58 AM CDT [facility] CO2, VENOUS 23 22 - 30 mmol/L 04/21/2025 10:58 AM CDT [facility] ANION GAP 14.4 <18.0 mmol/L 04/21/2025 10:58 AM CDT [facility] GLUCOSE 119(H) 70 - 99 mg/dL 04/21/2025 10:58 AM CDT [facility] BUN 10 5 - 18 mg/dL 04/21/2025 10:58 AM T [facility] CREATININE, BLOOD 0.62 0.60 - 1.00 mg/dL 04/21/2025 10:58 AM CDT [facility] BUN/CREATININE RATIO 16 12 - 20 ratio 04/21/2025 10:58 AM CDT [facility] TOTAL PROTEIN 7.0 6.0 - 8.0 g/dL 04/21/2025 10:58 AM CDT [facility] ALBUMIN 4.4 3.5 - 5.0 g/dL 04/21/2025 10:58 AM T [facility] A/G RATIO 1.7 1.0 - 2.2 04/21/2025 10:58 AM CDT [facility] CALCIUM 9.1 8.7 - 10.5 mg/dL 04/21/2025 10:58 AM CDT [facility] T BILI 0.3 0.2 - 1.2 mg/dL 04/21/2025 10:58 AM T [facility] SGOT (AST) 17 <43 U/L 04/21/2025 10:[address] [facility] SGPT (ALT) 10 <56 U/L 04/21/2025 10:[address] [facility] ALKALINE PHOSPHATASE 77 40 - 150 U/L 04/21/2025 10:58 AM T [facility] GFR, ESTIMATED >60 >=60 04/21/2025 10:58 AM T [facility] Comment: Creatinine Clearance is the preferred criteria for selecting drug dose adjustments in renally impaired patients. The GFR is provided as additional pertinent clinical information. GFR is reported in mL/min/1.73 sq m. Calculation based on the 2020 Chronic Kidney Disease Epidemiology Collaboration (CKD-EPI) equation refit without adjustment for race. GFR, EST. >60 >=60 025 10:58 AM T [facility] Comment: Creatinine Clearance is the preferred criteria for selecting drug dose adjustments in renally impaired patients. The GFR is provided as additional pertinent clinical information. GFR is reported in mL/min/1.73 sq m. Calculation based on the 2009 Chronic Kidney Disease Epidemiology Collaboration (CKD-EPI). GFR, EST. NONAFRICAN >60 >=60 04/21/2025 10:58 AM CDT [facility] Comment: Creatinine Clearance is the preferred criteria for selecting drug dose adjustments in renally impaired patients. The GFR is provided as additional pertinent clinical information. GFR is reported in mL/min/1.73 sq m. Calculation based on the 2009 Chronic Kidney Disease Epidemiology Collaboration (CKD-EPI). Blood Venipuncture / Unknown 04/21/2025 10:04 AM CDT 04/21/2025 10:28 AM CDT us Víctor Crump MD CHEMISTRY ORDERABLES Aster l Result [facility] [address] [place] [address] * US ABDOMEN LIMITED LEVEL 3 THREE ORGAN (04/21/2025 9:59 AM CDT) Anatomical Region Laterality Modality Abdomen N/A Ultrasound 04/21/2025 9:59 AM CDT Impressions 04/21/2025 10:33 AM CDT IMPRESSION: 1. No sonographic abnormality of the right upper abdomen. Narrative 04/21/2025 10:33 AM CDT DICTATING PHYSICIAN: Alexandro Bauer M.D. - [facility] EXAM: US ABDOMEN LIMITED LEVEL 3 THREE ORGAN 04/21/2025 9:59 AM HISTORY: Epigastric pain. Chronic pancreatitis. COMPARISON: CT 01/10/2025 FINDINGS: Liver: Normal echogenicity with homogeneous echotexture. The main portal vein is patent with antegrade flow. No hepatic lesions demonstrated. Pancreas: Normal in size and echogenicity. No focal abnormality or ductal dilatation. Gallbladder: Normal in size. No stones, wall thickening or pericholecystic fluid. Negative sonographic Garcia's sign. Bile ducts: The extrahepatic duct is nondilated measuring 0.4 cm in diameter. No intrahepatic biliary dilatation. Right kidney: 9.7 cm in length. Normal echogenicity and cortical thickness. No hydronephrosis. Procedure Note Alexandro Bauer MD - 04/21/2025 DICTATING PHYSICIAN: Alexand[facility] B[facility] M[facility] - [facility] EXAM: US ABDOMEN LIMITED LEVEL 3 THREE ORGAN 04/21/2025 9:59 AM HISTORY: Epigastric pain. Chronic pancreatitis. COMPARISON: CT 01/10/2025 FINDINGS: Liver: Normal echogenicity with homogeneous echotexture. The main portalvein is patent with antegrade flow. No hepatic lesions demonstrated. Pancreas: Normal in size and echogenicity. No focal abnormality or ductaldilatation. Gallbladder: Normal in size. No stones, wall thickening or pericholecysticfluid. Negative sonographic Garcia's sign. Bile ducts: The extrahepatic duct is nondilated measuring 0.4 cm indiameter. No intrahepatic biliary dilatation. Right kidney: 9.7 cm in length. Normal echogenicity and corticalthickness. No hydronephrosis. IMPRESSION: 1. No sonographic abnormality of the right upper abdomen. us Víctor Crump MD IMG US ORDERABLES Final R esult * (ABNORMAL) Urinalysis with Reflex if Indicated (04/21/2025 9:25 AM CDT) Only the most recent of3 resultswithin the time period is included. SPECIFIC GRAVITY 1.025 1.003 - 1.030 04/21/2025 9:58 AM CDT [facility] URINE PH 6.0 5.0 - 9.0 04/21/2025 9:58 AM CDT [facility] WBC ESTERASE Negative Negative 04/21/2025 9:58 AM CDT [facility] NITRITE Negative Negative 04/21/2025 9:58 AM CDT [facility] PROTEIN, RANDOM URINE 30 mg/dL(A) Negative 04/21/2025 9:58 AM CDT [facility] URINE GLUCOSE, QUAL Negative Negative 04/21/2025 9:58 AM CDT [facility] URINE KETONES Negative Negative 04/21/2025 9:58 AM CDT [facility] UROBILINOGEN Normal Normal mg/dL 04/21/2025 9:58 AM CDT [facility] URINE BLOOD Negative Negative elizabeth/ul 04/21/2025 9:58 AM CDT [facility] URINALYSIS COLOR Yellow 04/21/20 9:58 AM CDT [facility] URINALYSIS CLARITY Clear 04/21/2025 9:58 AM CDT [facility] WBC (Urine) 0-5 Negative, 0-5 /hpf 04/21/2025 9:58 AM CDT [facility] URINE RBC'S Negative Negative, 0-2 /hpf 04/21/2025 9:58 AM CDT [facility] EPITHELIAL CELLS Moderate amount /lpf 04/21/2025 9:58 AM CDT [facility] BACTERIA, URINE Few(A) Negative /hpf 04/21/2025 9:58 AM CDT [facility] URINE MUCOUS Few 04/21/2025 9:58 AM CDT [facility] Urine URINE SPECIMEN / Unknown Non-Phlebotomy Collection / Unknown 04/21/2025 9:25 AM CDT 04/21/2025 9:35 AM CDT us Víctor Crump MD URINE ORDERABLES Final Re sult [facility] [address] [place] [address] * (ABNORMAL) Urine Drug Screen (04/21/2025 9:25 AM CDT) Only the most recent of2 resultswithin the time period is included. UR AMPHETAMINE NON DETECTED NON DETECTED 04/21/2025 9:55 AM CDT [facility] Comment: FOR MEDICAL USE ONLY. CUTOFF CONCENTRATION FOR DETECTED RESULT: AMPHETAMINE: 500 NG/ML UR BENZODIAZEPINES NON DETECTED NON DETECTED 04/21/2025 9:55 AM CDT [facility] Comment: FOR MEDICAL USE ONLY. CUTOFF CONCENTRATION FOR DETECTED RESULT: BENZODIAZAPINE: 200 NG/ML UR COCAINE METABOLITE NON DETECTED NON DETECTED 04/21/2025 9:55 AM CDT [facility] Comment: FOR MEDICAL USE ONLY. CUTOFF CONCENTRATION FOR DETECTED RESULT: COCAINE: 150 NG/ML UR OPIATES NON DETECTED NON DETECTED 04/21/2025 9:55 AM CDT [facility] Comment: FOR MEDICAL USE ONLY. CUTOFF CONCENTRATION FOR DETECTED RESULT: OPIATES: 300 NG/ML UR PHENCYCLIDINE NON DETECTED NON DETECTED 04/21/2025 9:55 AM CDT [facility] Comment: FOR MEDICAL USE ONLY. CUTOFF CONCENTRATION FOR DETECTED RESULT: PCP: 25 NG/ML UR CANNABINOID DETECTED(A) NON DETECTED 04/21/2025 9:55 AM CDT [facility] Comment: FOR MEDICAL USE ONLY. CUTOFF CONCENTRATION FOR DETECTED RESULT: THC (MARIJUANA): 50 NG/ML UR BARBITURATE NON DETECTED NON DETECTED 04/21/2025 9:55 AM CDT [facility] Comment: FOR MEDICAL USE ONLY. CUTOFF CONCENTRATION FOR DETECTED RESULT: BARBITUATES: 200 NG/ML UR FENTANYL NON DETECTED NON DETECTED 04/21/2025 9:55 AM CDT [facility] Comment: FOR MEDICAL USE ONLY. CUTOFF CONCENTRATION FOR DETECTED RESULT: FENTANYL: 1.0 NG/ML Urine Non-Phlebotomy Collection / Unknown 04/21/2025 9:25 AM CDT 04/21/2025 9:35 AM CDT us Víctor Crump MD URINE ORDERABLES Final Re sult [facility] [facility] [place] [address] * EKG 12 LEAD (04/21/2025 9:24 AM CDT) Only the most recent of2 resultswithin the time period is included. Ventricular Rate 70 BPM EXTERNAL EKG Atrial Rate 70 BPM EXTERNAL EKG P-R Interval 150 ms EXTERNAL EKG QRS Duration 86 ms EXTERNAL EKG Q-T Duration 418 ms EXTERNAL EKG QTC CALCULATION 451 ms EXTERNAL EKG P [place] 53 degrees EXTERNAL EKG R [place] 61 degrees EXTERNAL EKG T [place] 58 degrees EXTERNAL EKG 04/21/2025 9:24 AM CDT Impressions EXTERNAL EKG - 04/22/2025 8:33 PM CDT Normal sinus rhythm with sinus arrhythmia Normal ECG When compared with ECG of 03-APR-2025 00:21, Vent. rate has decreased BY 51 BPM Non-specific change in ST segment in Inferior leads Non-specific change in ST segment in Lateral leads T wave amplitude has increased in Anterior leads Confirmed by MICK AGGARWAL ([id number]) on 04/22/2025 8:33:32 PM Narrative Procedure Note Mick Aggarwal MD - 04/22/2025 IMPRESSION: Normal sinus rhythm with sinus arrhythmia Normal ECG When compared with ECG of 03-APR-2025 00:21, Vent. rate has decreased BY 51 BPM Non-specific change in ST segment in Inferior leads Non-specific change in ST segment in Lateral leads T wave amplitude has increased in Anterior leads Confirmed by MICK AGGARWAL ([id number]) on 04/22/2025 8:33:32 PM us Víctor Crump MD IMG ECG ORDERABLES Final Result EXTERNAL EKG * SARS-COV-2 BY MOLECULAR (04/21/2025 9:15 AM CDT) Only the most recent of2 resultswithin the time period is included. SARSCOV2 NOT DETECTED (Referenc e Range for this test is Not Detected) 04/21/2025 10:24 AM CDT [facility] Comment:This test was perfor med by a Reverse Roll Clamp Operator PCR Method. Other NASOPHARYNGEAL STRUCTURE / Unknown Non-Phlebotomy Collection / Unknown 04/21/2025 9:15 AM CDT 04/21/2025 9:34 AM CDT us Víctor Crump MD MICROBIOLOGY - GENERAL OR DERABLES Final Result [facility] [place] [address] * (ABNORMAL) CBC with Auto Differential (04/21/2025 9:05 AM CDT) Only the most recent of3 resultswithin the time period is included. WBC 9.64 4.00 - 12.00 10(3)/mcL 04/21/2025 9:11 AM CDT [facility] RBC 4.31 3.80 - 5.30 10(6)/mcL 04/21/2025 9:11 AM CDT [facility] HEMOGLOBIN (HGB) 12.2 12.0 - 15.8 g/dL 04/21/2025 9:11 AM CDT [facility] HEMATOCRIT (HCT) 36.9 36.0 - 47.0 % 04/21/2025 9:11 AM CDT [facility] MCV 85.6 82.0 - 96.0 fL 04/21/2025 9:11 AM CDT [facility] MCH 28.3 26.0 - 34.0 pg 04/21/2025 9:11 AM CDT [facility] MCHC 33.1 31.0 - 36.0 g/dL 04/21/2025 9:11 AM CDT [facility] PLATELET COUNT 363 140 - 440 10(3)/mcL 04/21/2025 9:11 AM CDT [facility] RDW 13.7 11.8 - 15.5 % 04/21/2025 9:11 AM CDT [facility] MPV 8.8(L) 9.7 - 12.4 fL 04/21/2025 9:11 AM CDT [facility] NEUTROPHILS 74.9(H) 47.0 - 73.0 % 04/21/2025 9:11 AM CDT [facility] LYMPHOCYTES 17.8(L) 18.0 - 42.0 % 04/21/2025 9:11 AM CDT [facility] MONOCYTES 4.7 4.0 - 12.0 % 04/21/2025 9:11 AM CDT [facility] EOSINOPHILS 1.6 0.0 - 5.0 % 04/21/2025 9:11 AM CDT [facility] BASOPHILS 0.7 0.0 - 1.0 % 04/21/2025 9:11 AM CDT [facility] IMMATURE GRANULOCYTE 0.3 0.0 - 0.4 % 04/21/2025 9:11 AM CDT [facility] ABSOLUTE NEUTROPHILS 7.22 1.60 - 7.70 10(3)/[facility] 04/21/2025 9:11 AM CDT [facility] ABSOLUTE LYMPHOCYTES 1.72 1.30 - 3.20 10(3)/[facility] 04/21/2025 9:11 AM CDT [facility] ABSOLUTE MONOCYTES 0.45 0.20 - 1.00 10(3)/[facility] 04/21/2025 9:11 AM CDT [facility] ABSOLUTE EOSINOPHIL 0.15 0.00 - 0.40 10(3)/[facility] 04/21/2025 9:11 AM CDT [facility] ABSOLUTE BASOPHILS 0.07 0.00 - 0.10 10(3)/[facility] 04/21/2025 9:11 AM CDT [facility] ABSOLUTE IMMATURE GRANULOCYTE 0.03 0.00 - 0.03 10 (3) [facility]. 04/21/2025 9:11 AM CDT [facility] NRBC PER 100 WBC 0 04/21/20 9:11 AM CDT [facility] Blood Venipuncture / Unknown 04/21/2025 9:05 AM CDT 04/21/2025 9:09 AM CDT us Víctor Crump MD HEMATOLOGY ORDERABLES Fin al Result [facility] [place] [address] * Human Chorionic Gonadotropin Scrn Serum [id number] (04/21/2025 9:05 AM CDT) PREG-HCG Negative Negative 04/21/2025 9:39 AM CDT [facility] Blood Venipuncture / Unknown 04/21/2025 9:05 AM CDT 04/21/2025 9:09 AM CDT us Víctor Crump MD CHEMISTRY ORDERABLES Aster l Result [facility] [place] [address] * EKG SCAN (04/21/2025 12:00 AM CDT) Only the most recent of2 resultswithin the time period is included. 04/21/2025 us Provider Scan IMG ECG ORDERABLES Final Result RESULTING AGENCY * Ur Test Qual (04/03/2025 1:14 AM CDT) Pathologist [facility] PREG TEST,MONOCLONA L Negative 04/03/2025 1:49 AM CDT [facility] Urine Non-Phlebotomy Collection / Unknown 04/03/2025 1:14 AM CDT 04/03/2025 1:24 AM CDT us Nikolas Esquivel MD URINE ORDERABLES Final Re sult [facility] [place] [address] * POCT Urine HCG () (04/01/2025 4:43 AM CDT) POC URINE Negative POC URINE CONTROL [place] Urine 04/01/2025 4:43 AM CDT us Víctor Crump MD POINT OF CARE TESTING (DRISS PARKMYESHA) Final Result * Culture, Urine (04/01/2025 4:36 AM CDT) CULTURE RESULTS Mixed Growth of One or More Distal Urethral Contaminants 04/02/2025 12:32 PM CDT [facility] URINE SPECIMEN / Unknown Non-Phlebotomy Collection / Unknown 04/01/2025 4:36 AM CDT 04/01/2025 4:49 AM CDT Víctor Crump MD MICROBIOLOGY - GENERAL OR DERABLES Final Result [facility] [address] [place] [address], [place] from Last 3 Months Insurance [place]ICA[place] Advance Directives * Full Code (Latest Code Status on File) Date Activated Date Inactivated Comments 02/05/2024 5:40 AM 02/12/2024 12:58 AM CPR-Full Terrance atment: FULL ARREST: Attempt Resuscitation/CPR wit intubation and mechanical ventilation. PRE-ARREST: Use entire range of life support measures to stabilize the patient. Care Teams Bio Medical Technician Relationship Specialty Start Date End Date Jolene Sarkar APRN, ENROLLMENT COORDINATOR [address] [place] [address] PCP - General Advanced Practice Nurse 08/18/24 Byron Barnes MD Consulting Physician Obstetrics & Gynecology 10/15/18
--- OUTSIDE RECORDS SUMMARY | 2025-06-07 13:31 | XMS_ITS | Clinical Summary ---
Author Organization [facility] Address [address] [place] [address] Care Team Providers Care Deckhand Name Role Phone Byron Barnes MD Unavailable [phone] Cory Mustafa MD Unavailable [phone] Daniela Kimble Unavailable [phone] No, Physician Primary Care Provider [phone] Allergies No known active allergies Medications traZODone (DESYREL) 50 mg tablet Take 1 tablet (50 mg total) by mouth nightly 2 Active hydrOXYzine (VISTARIL) 50 mg capsuleIndications :anxiety Take 1 capsule (50 mg total) by mouth every 6 (six) hours as needed for itching 30 capsule 4 Active propranoloL (INDERAL) 10 mg tablet Take 1 tablet (10 mg total) by mouth 3 (three) times a day Active OLANZapine (ZyPREXA) 10 mg tablet Take 1 tablet (10 mg total) by mouth nightly Active ondansetron ODT (ZOFRAN-ODT) 4 mg disintegrating tablet Take 1 tablet (4 mg total) by mouth every 8 (eight) hours as needed for nausea or vomiting 20 tablet [address] (PROTONIX) 40 mg EC tabletIndications: Treatment of Non-Bleeding Gastric Disorder Take 1 tablet (40 mg total) by mouth 2 (two) times a day 60 tablet [address] (CYMBALTA) 30 mg capsule Take 2 capsules (60 mg total) by mouth daily 4 Active oxyBUTYnin (DITROPAN) 5 mg tablet Take 1 tablet (5 mg total) by mouth 2 (two) times a day 60 tablet 11 4 Active thiamine (VITAMIN B-1) 250 mg tabletIndications: Treatment of known or suspected Wernicke's Encephalopathy Take 1 tablet (250 mg total) by mouth daily for 5 doses 5 tablet 4 Active folic acid (FOLVITE) 1 mg tabletIndications: Treatment of known or suspected Wernicke's Encephalopathy Take 1 tablet (1 mg total) by mouth daily for 2 doses 2 tablet 4 Active dicyclomine (BENTYL) 20 mg tablet Take 1 tablet (20 mg total) by mouth every 6 (six) hours as needed 4 Active LORazepam (ATIVAN) 1 mg tablet Take 1 tablet (1 mg total) by mouth every 8 (eight) hours as needed 4 Active amLODIPine (NORVASC) 10 mg tablet Take 1 tablet (10 mg total) by mouth daily Active cloNIDine (CATAPRES) 0.2 mg tablet Take 1 tablet (0.2 mg total) by mouth 2 (two) times a day Active ferrous sulfate 325 mg (65 mg of elemental iron) tabletIndications: Iron Deficiency Anemia Take 1 tablet (65 mg of elemental iron total) by mouth daily with breakfast Active pancrelipase (Creon) 12,000 units of lipase capsule Creon Active vit,candis 74/iron/folic ( VITAMIN 1+1 ORAL) Vitamin 5 Active Active Problems Problem Noted Date Diagnosed Date Alcohol abuse 06/16/2024 Nausea and vomiting, unspecified vomiting type 1 07/28/2023 Sepsis 05/28/2024 Acute on chronic pancreatitis 04/01/2024 Alcohol withdrawal syndrome without complication 02/13/2024 Alcohol-induced acute pancreatitis 02/13/2024 Urinary tract infection without hematuria 2023 Gastroesophageal reflux disease without esophagi tis 02/13/2024 Lactic acidosis 02/13/2024 Nausea and vomiting 02/13/2024 Fall 02/01/2024 Alcoholic gastritis, presenc e of bleeding unspecified, unspecified chronicity 01/31/2024 Alcohol dependence with alcohol-induced disorder 01/31/2024 Drug-induced constipation 01/25/2024 Alcohol use disorder 01/23/2024 Alcoholic hepatitis without ascites 01/23/2024 Alcohol-induced acute pancre atitis, unspecified complication status 01/11/2024 Alcohol-induced acute pancreatitis 01/07/2024 Hypokalemia due to excessive gastrointestinal loss of potassium 01/03/2024 Portal vein thrombosis 01/03/2024 Alcohol dependence with unsp ecified alcohol-induced disorder 01/02/2024 Gastropathy 11/28/2023 Chronic pancreatitis due to acute alcohol intoxi cation 11/28/2023 Mild protein-calorie malnutrition 11/19/2023 Pancreatic pseudocyst/cyst 11/17/2023 Leukocytosis 11/03/2023 Thrombocytosis 11/03/2023 High anion gap metabolic acidosis 11/03/2023 Alcohol intoxication 11/03/2023 Abdominal pain 11/02/2023 Alcohol-induced acute pancre atitis without infection or necrosis 08/06/2023 Alcohol withdrawal syndrome with complication Alcoholic intoxication with complication 024 History of depression 02/03/2023 Hyponatremia 02/03/2023 Hepatic steatosis 02/03/2023 Elevated liver function tests 02/03/2023 Dark stools 02/03/2023 Idiopathic acute pancreatitis without infection or necrosis 02/02/2023 38 weeks gestation of 07/18/2022 ADHD (attention deficit hyperactivity disorder) 11/11/2021 Generalized anxiety disorder 04/14/2021 Major depressive disorder, recurrent 04/14/2021 Weakness generalized 03/02/2021 Concentration deficit 03/02/2021 Appetite impaired 03/02/2021 Weight loss, unintentional 03/02/2021 Vertigo 03/02/2021 Resolved Problems Problem Noted Date Diagnosed Date Resolved Date Moderate protein-calorie malnutrition 08/05/2023 05/29/2024 Encounters Date Type Department Care Team Description 05/15/2025 8:59 AM JAVA WEB USER INTERFACE DEVELOPER - 05/15/2025 4:51 PM [facility] Emergency [facility] Emergency Department [id number] [place] [address] Ellis Pearce MD Bipolar 1 disorder (HCC) (Primary Dx) Discharge Disposition: Discharge to home or self care 05/15/2025 8:50 AM JAVA WEB USER INTERFACE DEVELOPER - 05/15/2025 11:59 PM JAVA WEB USER INTERFACE DEVELOPER Hospital Encounter [facility] [address] [place] [address] Emergency, Room R Discharge Disposition: Discharge to home or self care 05/06/2025 4:04 PM CDT - 05/06/2025 8:40 PM CDT Emergency [facility] Emergency Department [address] [place] [address] Ellis Girard MD Mental health problem (Primary Dx) Discharge Disposition: Discharge to home or self care from Last 3 Months Surgical History Surgery Date Site/Laterality Comments NO PAST SURGERIES Medical History Medical History Date Comments Mental disorder depression Pancreatitis ETOH abuse Family History Medical History Relation Name Comments No Known Problems Other Relation Name Status Comments Other Social History Tobacco Use Types Packs/Day Years Used Date Smoking Tobacco: Every Day Cigarettes Smokeless Tobacco: Never Tobacco Cessation:Ready to Q uit: Not Asked; Counseling Given: Not Answered Alcohol Use Standard Drinks/Week Comments Yes 0 (1 standard drink = 0.6 oz pur e alcohol) daily [facility] Utilities Answer Date Recorded In the past 12 months has [employer] biomass, [employer]AY[employer], oil, or water [employer] threatened to shut off services in your home? No 06/18/2024 Humiliation, Afraid, Rape, and Kick questionnair e Answer Date Recorded Within the last year, have y ou been afraid of your partner or ex-partner? No 02/05/2023 Within the last year, have y ou been humiliated or emotionally abused in other ways by your partner or ex-partner? No Within the last year, have y ou been kicked, hit, slapped, or otherwise physically hurt by your partner or ex-partner? No 02/05/2023 Within the last year, have y ou been raped or forced to have any kind of sexual activity by your partner or ex-partner? No 02/05/2023 Social Connection and Isolation Panel Answer Date Recorded In a typical week, how many times do you talk on the phone with family, friends, or neighbors? More than three times a week 06/18/2024 How often do you get togethe r with friends or relatives? More than three times a week 06/18/2024 How often do you attend [facility] or buddhism services? Never 06/18/2024 Do you belong to any clubs o r organizations such as restorationist groups, unions, fraternal or athletic groups, or school groups? No 06/18/2024 How often do you attend meet ings of the clubs or organizations you belong to? Never 06/18/2024 Are you , , di vorced, , never , or living with a partner? Never 06/18/2024 AUDIT-C Answer Date Recorded Q1: How often do you have a drink containing alcohol? 4 or more times a week 06/16/2024 Q2: How many drinks containi ng alcohol do you have on a typical day when you are drinking? 10 or more Q3: How often do you have si x or more drinks on one occasion? Daily or almost daily 06/16/2024 Overall Financial Resource Strain (CARDIA) Answe r Date Recorded How hard is it for you to pa y for the very basics like food, housing, medical care, and heating? Hard 06/18/2024 PHQ-2 Answer Date Recorded PHQ-2 Total Score (If total score is 3 or more points, staff should administer the PHQ-9) 0 08/08/2023 [facility]at [facility] - Occupational Stress Questionnaire Answer Date Recorded Do you feel stress - tense, restless, nervous, or anxious, or unable to sleep at night because your mind is troubled all the time - these days? Not at all 07/18/2022 Exercise Vital Sign Answer Date Recorde d On average, how many days pe r week do you engage in moderate to strenuous exercise (like a brisk walk)? 0 days 07/18/2022 On average, how many minutes do you engage in exercise at this level? 0 min 07/18/2022 Hunger Vital Sign Answer Date Recorded Within the past 12 months, y ou worried that your food would run out before you got the money to buy more. Sometimes true Within the past 12 months, t he food you bought just didn't last and you didn't have money to get more. Sometimes true 06/2024 PRAPARE - Transportation Answer Date Re corded In the past 12 months, has l ack of transportation kept you from medical appointments or from getting medications? Yes 06/07 In the past 12 months, has l ack of transportation kept you from meetings, work, or from getting things needed for daily living? No 06/18/2024 Housing Stability Vital Sign Answer Leroy e Recorded In the last 12 months, was t here a time when you were not able to pay the mortgage or rent on time? Yes 11/19/2023 In the last 12 months, how many places have you lived? 4 11/19/2023 In the last 12 months, was t here a time when you did not have a steady place to sleep or slept in a senior care (including now)? Yes 11/19/2023 [place] Depression Scale Answer Date Recorded [place] Depression Scale Total 3 02/05/2023 The thought of harming myself has occurred to me . Never 02/05/2023 Housing Stability Vital Sign Answer Leroy e Recorded In the last 12 months, was t here a time when you were not able to pay the mortgage or rent on time? Yes 06/18/2024 In the past 12 months, how m any times have you moved where you were living? 5 06/18/2024 At any time in the past 12 m [facility], were you homeless or living in a senior care (including now)? Yes 06/18/2024 Personal Safety Answer Date Recorded Have you ever been in or are you currently in a harmful physical or emotional relationship or is someone making you feel afraid or unsafe? Yes 05/15/2025 Education Answer Date Recorded What is the highest level of school you have completed or the highest degree you have received? Some college, no degree 02/04/2023 Comments No Sex and Gender Information Value Date Recorded Sex Assigned at Not on file Legal Sex Female 9:54 AM JAVA WEB USER INTERFACE DEVELOPER Gender Identity Not on file Sexual Orientation Not on file Obstetrics History Para Term AB IAB SAB Ectopic Multiple Livin g Live Births 5 4 4 1 1 0 4 4 Date Outcome GA Total Labor Labor/2nd/3rd Weight Sex Type Anes PTL Kiersten A1 A5 Name Clin Term Term SAB 020 Term 39w 4d 8h 20m 7h 20m/0h 55m/0h 05m 3.205 kg (7 lb 1.1 oz) F Vag-S pont Epidur al N Livin g 5 8 PRIMO ,GIRL RONNY GOMEZSolomon Augustine MD Complications:None Delivery Location:[facility] ([facility]) 023 Term 38w 2d 2h 10m 2h 04m/0h 03m/0h 03m 2.78 kg (6 lb 2.1 oz) F Vag-S pont Epidur al N Livin g 8 9 PRIMO ,GIRL RONNY Savana Marti MD Complications:Precipitous La bor (<3 hours) Delivery Location:[facility]) Last Filed Vital Signs Vital Sign Reading Time Taken Comments Blood Pressure 124/114 05/15/2025 9:10 AM JAVA WEB USER INTERFACE DEVELOPER Pulse 67 05/15/2025 9:10 AM JAVA WEB USER INTERFACE DEVELOPER Temperature 36.5 C (97.7 F) 05/15/2025 9:10 AM JAVA WEB USER INTERFACE DEVELOPER Respiratory Rate 16 05/15/2025 9:10 AM JAVA WEB USER INTERFACE DEVELOPER Oxygen Saturation 99% 05/15/2025 9:10 AM JAVA WEB USER INTERFACE DEVELOPER Inhaled Oxygen Concentration - - Weight 68 kg (150 lb) 05/06/2025 4:02 PM CDT Height 157.5 cm (5' 2) 01/11/2025 12:38 PM CDT Body Mass Index 27.44 01/11/2025 12:38 PM CDT Plan of Treatment Health Maintenance Due Date Last Done Comments Cervical Cancer Screening 1992 Varicella Vaccines (1 of 2 - 13+ 2-dose series) 2005 Hepatitis B Screening 2010 Regular Well Visit/Exam 18-64 2010 Pneumococcal vaccine <65 (1 of 2 - PCV) 2011 HPV Vaccines (1 - 3-dose SCD M series) 2019 Depression Screening 08/04/2024 08/04/2023, 02/05/2023, 07/12/2022, Additional history exists Influenza Vaccine (#1) 2025 05/09/2020 DTaP/Tdap/Td Vaccine (4 - Td or Tdap) 09/24/2029 09/25/2019, 03/26/2017, 04/07/2013 Hepatitis C Screening Completed 01/11/2025 , 02/13/2024, 07/17/2023 Procedures Procedure Name Priority Date/Time Associated Diagnosis Comments URINALYSIS, MICROSCOPIC ONLY STAT 05/15/2025 11:29 AM JAVA WEB USER INTERFACE DEVELOPER DRUGS OF ABUSE SCREEN, URINE WITHOUT CONFIRMATION STAT 05/15/2025 11:29 AM JAVA WEB USER INTERFACE DEVELOPER URINE CULTURE STAT 05/15/2025 11:29 AM JAVA WEB USER INTERFACE DEVELOPER URINALYSIS AND REFLEX TO MICROSCOPIC AND CULTURE STAT 05/15/2025 11:29 AM JAVA WEB USER INTERFACE DEVELOPER EGFR STAT 05/15/2025 9:31 AM JAVA WEB USER INTERFACE DEVELOPER DIFFERENTIAL AUTO STAT 05/15/2025 9:3 1 AM JAVA WEB USER INTERFACE DEVELOPER ACETAMINOPHEN LEVEL STAT 05/15/2025 9 :31 AM JAVA WEB USER INTERFACE DEVELOPER SALICYLATE LEVEL STAT 05/15/2025 9:31 AM JAVA WEB USER INTERFACE DEVELOPER ETHANOL STAT 05/15/2025 9:31 AM JAVA WEB USER INTERFACE DEVELOPER BASIC METABOLIC PANEL STAT 05/15/2025 9:31 AM JAVA WEB USER INTERFACE DEVELOPER CBC WITH AUTO DIFFERENTIAL STAT 05/15/2025 9:31 AM JAVA WEB USER INTERFACE DEVELOPER URINALYSIS, MICROSCOPIC ONLY STAT 05/06/2025 4:28 PM CDT DRUGS OF ABUSE SCREEN, URINE WITHOUT CONFIRMATION STAT 05/06/2025 4:28 PM CDT HCG, URINE, QUALITATIVE STAT 05/06/2025 4:28 PM CDT URINALYSIS AND REFLEX TO MICROSCOPIC AND CULTURE STAT 05/06/2025 4:28 PM CDT EGFR STAT 05/06/2025 4:26 PM CDT DIFFERENTIAL AUTO STAT 05/06/2025 4:2 6 PM CDT THYROID FUNCTION CASCADE STAT 05/06/2025 4:26 PM CDT SALICYLATE LEVEL STAT 05/06/2025 4:26 PM CDT ETHANOL STAT 05/06/2025 4:26 PM CDT COMPREHENSIVE METABOLIC PANEL STAT 05/06/2025 4:26 PM CDT CBC WITH AUTO DIFFERENTIAL STAT 05/06/2025 4:26 PM CDT HEPATITIS C ANTIBODY Routine 01/11/2025 1:21 PM CDT Inconclusive laboratory evidence of HIV Screening for viral disease from Last 3 Months or Most Recently Relevant to Health Maintenance Results * (ABNORMAL) Urinalysis reflex to microscopic and culture Urine (05/15/2025 11:29 AM JAVA WEB USER INTERFACE DEVELOPER) Color, ur Yellow Yellow Clarity, ur Turbid(A) Clear [facility] Specific gravity, ur 1.036(H) 1.003 - 1.030 [facility] pH, urine 5.5 [facility] Comment: Interpretive Data U rine pH is affected by diet, medications, systemic acid-base disturbances, and renal tubular function. pH may affect urinary stone formation. For example, urine pH below 6.0 may help reduce the tendency for calcium phosphate stones and pH greater than 6.0 may reduce the tendency for uric acid stone formation. Source: [facility] [place] Current Interpretive Data was last revised on 2017 Protein, ur ql 1+(A) Negative [facility] Glucose, ur ql Negative Negative [facility] Ketones, ur 1+(A) Negative [facility] Bilirubin, ur Negative Negative [facility] Blood, ur 3+(A) Negative [facility] Urobilinogen, ur 2.0(A) <2.0 mg/dL [facility] Nitrite, ur Negative Negative [facility] Leukocyte esterase, ur 3+(A) Negative [facility] UA reflex comment Reflex to microscopic UA will be performed. [facility] Urine 05/15/2025 11:2 9 AM JAVA WEB USER INTERFACE DEVELOPER 05/15/2025 11:34 AM JAVA WEB USER INTERFACE DEVELOPER us Ellis Pearce MD LAB MICROBIOLOGY - GENERAL ORDERABLES Final Result [facility] [id number] Department [place] [address] * (ABNORMAL) Drugs of Abuse Screen, Urine without Confirmation (05/15/2025 11:29 AM JAVA WEB USER INTERFACE DEVELOPER) [facility] Signature Amphetamine, ur Not Detected CutOff 500ng/mL Comment: Interpretive Data - Amphetamines: Samples containing greater than 500 ng/mL d-methamphetamine or other cross-reacting amphetamine compounds are reported as positive. Amphetamine immunoassays are subject to significant false positive rates due to cross-reactivity of non-amphetamine drugs. Confirmatory testing required for definitive results. Current Interpretive Data was last reviewed 2023. Barbiturates, ur Not Detected CutOff 200ng/mL [facility] Comment: Interpretive Data - Barbiturates: Samples containing greater than 200 ng/mL secobarbital or other cross-reacting barbiturate compounds are reported as positive. False positive and false negative results are possible. Confirmatory testing required for definitive results. Current Interpretive Data was last reviewed 2023. Benzodiazepines, ur Screen Positive, presumptive (A) CutOff 100ng/mL [facility] Comment: Interpretive Data - Benzodiazepines: Samples containing greater than 100 ng/mL nordiazepam or other cross-reacting compounds are reported as positive. False positive and false negative results are possible. Confirmatory testing required for definitive results. Current Interpretive Data was last reviewed 2023. Cannabinoids, ur Screen Positive, presumptive (A) CutOff 50 ng/mL [facility] Comment: Interpretive Data - Cannabinoids: Samples containing greater than 50 ng/mL delta-9 THC -COOH or other cross- reacting compounds are reported as positive. False positive and false negative results are possible. Confirmatory testing required for definitive results. Current Interpretive Data was last reviewed 2023. Cocaine, ur Not Detected CutOff 150ng/mL [facility] Comment: Interpretive Data - Cocaine: Samples containing greater than 150 ng/mL benzoylecgonine or other cross- reacting compounds are reported as positive. False positive and false negative results are possible. Confirmatory testing required for definitive results. Current Interpretive Data was last reviewed 2023. Fentanyl, Ur Not Detected CutOff 5 ng/mL [facility] Comment: Interpretive Data - Fentanyl: Samples containing greater than 5 ng/mL norfentanyl, fentanyl, or other cross-reacting fentanyl compounds are reported as positive. False positive and false negative results are possible. Confirmatory testing required for definitive results. Current Interpretive Data was last reviewed 2023. Methadone, ur Not Detected CutOff 300ng/mL [facility] Comment: Interpretive Data - Methadone: Samples containing greater than 300 ng/mL d,l-methadone or other cross-reacting compounds are reported as positive. False positive and false negative results are possible. Confirmatory testing required for definitive results. Current Interpretive Data was last reviewed 2023. Opiates, ur Not Detected CutOff 300ng/mL [facility] Comment: Interpretive Data - Opiates: Samples containing greater than 300 ng/mL morphine or other cross-reacting compounds are reported as positive. False positive and false negative results are possible. Confirmatory testing required for definitive results. Current Interpretive Data was last reviewed 2023. Oxycodone, ur Not Detected CutOff 100ng/mL [facility] Comment: Interpretive Data - Oxycodone: Samples containing greater than 100 ng/mL oxycodone or other cross-reacting compounds are reported as positive. False positive and false negative results are possible. Confirmatory testing required for definitive results. Current Interpretive Data was last reviewed 2023. Phencyclidine, ur Not Detected CutOff 25 ng/mL [facility] Comment: Interpretive Data - Phencyclidine: Samples containing greater than 25 ng/mL phencyclidine or other cross-reacting compounds are reported as positive. False positive and false negative results are possible. Confirmatory testing required for definitive results. Current Interpretive Data was last reviewed 2023. Urine Creatinine 470 mg/dL [facility] Comment: Interpretive Data Urine Creatinine: < 10 mg/dL is extremely dilute = or > 10 but < 20 mg/dL is dilute = or > 20 mg/dL is normal Current Interpretive Data was last revised on 2017. Urine 05/15/2025 11:2 9 AM JAVA WEB USER INTERFACE DEVELOPER 05/15/2025 11:34 AM JAVA WEB USER INTERFACE DEVELOPER Narrative [facility] - 05/15/2025 11:54 AM JAVA WEB USER INTERFACE DEVELOPER Drug of Abuse screening is performed by immunoassay for medical purposes only. This is not to be used for Pain Management purposes. Ellis Pearce MD LAB URINE ORDERABLES Final Result Performing Organization Address City/[facility]/ZIP Co de Phone Number PHANI STRATTON [id number] [place] [address] * (ABNORMAL) Urinalysis, microscopic only (05/15/2025 11:29 AM JAVA WEB USER INTERFACE DEVELOPER) WBC, ur 21-50(A) 0 - 5 /HPF RBC, ur 3-5(A) 0 - 2 /HPF [facility] Epithelial cells, squamous, ur 21-50(A) 0 - 5 /HPF [facility] Mucous, ur Present(A) [facility] Culture Reflex Comment Reflex to urine culture will be performed. [facility] Urine 05/15/2025 11:2 9 AM JAVA WEB USER INTERFACE DEVELOPER 05/15/2025 11:34 AM JAVA WEB USER INTERFACE DEVELOPER Ellis Pearce MD LAB URINE ORDERABLES Final Result Performing Organization Address [facility] Co de Phone Number PHANI STRATTON [id number] Department [place] [address] * (ABNORMAL) Urine culture Urine (05/15/2025 11:29 AM JAVA WEB USER INTERFACE DEVELOPER) Report Final Report: Less than 100,000 colonies/mL (clinically insignificant growth based on current clinical standards) Includes the following: Less than 100,000 colonies/mL Streptococcus agalactiae (Group B Streptococci) * * * * * * * * * * * * * * * * * * * * Resistance to penicillin in Group B Streptococcus has not been reported. Group B Streptococci are universally susceptible to beta-lactam antibiotics and vancomycin. Routine susceptibility testing is not performed. In penicillin allergic patients, please contact the laboratory at [phone] to request susceptibility testing * * * * * * * * * * * * * * * * * * * * This laboratory routinely screens urine cultures for any amount of Group B Streptococcus in reproductive age women. Recovery of this isolate may be significant in women, however, the recovery of this organism in small quantities in non- women represents contamination with periurethral akua. (.) Comment:Testing performed by : [facility], [address] [place]., [address] Organism (CLINICALLY INSIGNIFICANT GROWTH [facility] Organism STREPTOCOCCUS AGALACTIAE (GROUP B STREPTOCOCCI) [facility] Urine 05/15/2025 11:2 9 AM JAVA WEB USER INTERFACE DEVELOPER 05/15/2025 2:25 PM JAVA WEB USER INTERFACE DEVELOPER Narrative [facility] - 05/16/2025 3:47 PM JAVA WEB USER INTERFACE DEVELOPER Urine culture reflexed based upon urinalysis results. Testing performed by [facility] Microbiology Laboratory ([phone]) Ellis Pearce MD LAB MICROBIOLOGY - GENERAL ORDERABLES Final Result Performing Organization Address City/[facility]/ZIP Co de Phone Number PHANI [id number] [address]; to ([place]) [place] [address] * eGFR (05/15/2025 9:31 AM JAVA WEB USER INTERFACE DEVELOPER) eGFR >90 >=60 mL/min/1. 73 m2 Comment: Interpretive Data Reference Interval Normal >/= 90 mL/min/1.73m2 Mildly decreased* 60 - 89 mL/min/1.73m2 Mildly to moderately decreased 45 - 59 mL/min/1.73m2 Moderately to severely decreased 30 - 44 mL/min/1.73m2 Severely decreased 15 - 29 mL/min/1.73m2 Kidney Failure < 15 mL/min/1.73m2 *Relative to young adult level Estimated glomerular filtration rate is determined by the 2020 CKD-EPI equation recommended by the [employer] (A Unifying Approach to GFR Estimation: Recommendations of the NKF-ASK Task Force on Reassessing the Inclusion of Race in Diagnosing Kidney Disease, JASN 2020). The CKD-EPI equation should not be used for patients with unstable renal function and has not been validated in children and those over 70. Current interpretive data was last reviewed 2021. Blood 05/15/2025 9:31 AM JAVA WEB USER INTERFACE DEVELOPER 05/15/2025 9:31 AM JAVA WEB USER INTERFACE DEVELOPER Ellis Pearce MD LAB BLOOD ORDERABLES Final Result Performing Organization Address City/[facility]/ZIP Co de Phone Number PHANI [phone] [address] [place] [address] * Differential, auto (05/15/2025 9:31 AM JAVA WEB USER INTERFACE DEVELOPER) Neutrophil abs 3.15 1.50 - 6.50 K/cumm Imm gran abs 0.01 0.00 - 0.10 K/cumm [facility] Lymphocyte abs 1.84 0.80 - 3.30 K/cumm [facility] Monocyte abs 0.46 0.20 - 0.80 K/cumm [facility] CH Eosinophil abs 0.15 0.00 - 0.50 K/cumm [facility] Basophil abs 0.07 0.00 - 0.10 K/cumm [facility] Neutrophil pct 55.5 % [facility] Comment: Interpretive Data Percent cell count reference ranges are not reported, since discordance with absolute values may lead to misinterpretation of CBC data. Current Interpretive Data was last revised on 2017. Imm gran pct 0.2 % [facility] Comment: Interpretive Data Percent cell count reference ranges are not reported, since discordance with absolute values may lead to misinterpretation of CBC data. Current Interpretive Data was last revised on 2017. Lymphocyte pct 32.4 % [facility] Comment: Interpretive Data Percent cell count reference ranges are not reported, since discordance with absolute values may lead to misinterpretation of CBC data. Current Interpretive Data was last revised on 2017. Monocyte pct 8.1 % [facility] Comment: Interpretive Data Percent cell count reference ranges are not reported, since discordance with absolute values may lead to misinterpretation of CBC data. Current Interpretive Data was last revised on 2017. Eosinophil pct 2.6 % [facility] Comment: Interpretive Data Percent cell count reference ranges are not reported, since discordance with absolute values may lead to misinterpretation of CBC data. Current Interpretive Data was last revised on 2017. Basophil pct 1.2 % [facility] Comment: Interpretive Data Percent cell count reference ranges are not reported, since discordance with absolute values may lead to misinterpretation of CBC data. Current Interpretive Data was last revised on 2017. Blood 05/15/2025 9:31 AM JAVA WEB USER INTERFACE DEVELOPER 05/15/2025 9:31 AM JAVA WEB USER INTERFACE DEVELOPER Ellis Pearce MD LAB BLOOD ORDERABLES Final Result Performing Organization Address [facility] Co de Phone Number [facility] [id number] [facility] [place] [address] * CBC with auto differential (05/15/2025 9:31 AM JAVA WEB USER INTERFACE DEVELOPER) WBC 5.68 3.80 - 9.90 K/cumm Hgb 12.4 11.9 - 15.5 g/dL [facility] Hct 38.0 35.6 - 45.5 % [facility] Plt 261 150 - 400 K/cumm [facility] MPV 10.9 9.1 - 12.3 fL [facility] RBC 4.44 3.90 - 5.20 M/cumm [facility] MCV 85.6 81.3 - 96.4 fL [facility] MCH 27.9 27.1 - 33.3 pg [facility] MCHC 32.6 32.3 - 35.7 g/dL [facility] RDW CV 13.9 11.1 - 14.9 % [facility] RDW SD 42.6 35.7 - 48.1 fL [facility] NRBC abs 0.00 0.00 - 0.01 K/cumm [facility] Blood 05/15/2025 9:31 AM JAVA WEB USER INTERFACE DEVELOPER 05/15/2025 9:31 AM JAVA WEB USER INTERFACE DEVELOPER Ellis Pearce MD LAB BLOOD ORDERABLES Final Result Performing Organization Address [facility] de Phone Number PHANI [place] [id number] [facility] [place] [address] * Ethanol (05/15/2025 9:31 AM JAVA WEB USER INTERFACE DEVELOPER) Ethanol <10 <=10 mg/dL Comment: Interpretive Data Legal limit of intoxication > or = 80 mg/dL Levels > or = 400 mg/dL are potentially TOXIC. Current interpretive data was last revised on 2018. Blood 05/15/2025 9:31 AM JAVA WEB USER INTERFACE DEVELOPER 05/15/2025 9:31 AM JAVA WEB USER INTERFACE DEVELOPER Ellis Pearce MD LAB BLOOD ORDERABLES Final Result Performing Organization Address [facility] Co de Phone Number BOUBACARZEESHAN STRATTON [address] [address] [facility] [place] [address] * Acetaminophen level (05/15/2025 9:31 AM JAVA WEB USER INTERFACE DEVELOPER) Acetaminophen <5 <=5 mcg/mL Comment: Interpretive Data Significant hepatic injury may occur and treatment with n-acetyl cysteine is generally recommended if the acetaminophen level exceeds: 150 mcg/mL at 4 hours after ingestion 75 mcg/mL at 8 hours after ingestion 38 mcg/mL at 12 hours after ingestion 19 mcg/mL at 16 hours after ingestion Consult toxicology or poison control ([phone]) for unknown ingestion time. Current interpretive data was last revised 2023. Blood 05/15/2025 9:31 AM JAVA WEB USER INTERFACE DEVELOPER 05/15/2025 9:31 AM JAVA WEB USER INTERFACE DEVELOPER Ellis Pearce MD LAB BLOOD ORDERABLES Final Result Performing Organization Address [facility] de Phone Number PHANI [phone] [address] [facility] [place] [address] * Salicylate level (05/15/2025 9:31 AM JAVA WEB USER INTERFACE DEVELOPER) Salicylate <0.3 <=0.3 mg/dL Comment: Interpretive Data Toxic: 30 mg/dL or greater. Current interpretive data was last revised 2023. Blood 05/15/2025 9:31 AM JAVA WEB USER INTERFACE DEVELOPER 05/15/2025 9:31 AM JAVA WEB USER INTERFACE DEVELOPER Ellis Pearce MD LAB BLOOD ORDERABLES Final Result Performing Organization Address [facility] Co de Phone Number BOUBACARZEESHAN STR[place]TON [address] [facility] [place] [address] * (ABNORMAL) Basic metabolic panel (05/15/2025 9:31 AM JAVA WEB USER INTERFACE DEVELOPER) Sodium 139 135 - 145 mmol/L Potassium, pl 4.1 3.3 - 4.9 mmol/L [facility] Chloride 102 97 - 110 mmol/L [facility] CO2 18(L) 22 - 32 mmol/L [facility] Anion gap 19(H) 2 - 15 mmol/L [facility] BUN 12 6 - 25 mg/dL [facility] Creatinine 0.61 0.60 - 1.10 mg/dL [facility] Glucose 87 70 - 199 mg/dL [facility] Comment: Interpretive Data Fasting glucose >/= 126 mg/dl is diagnostic for diabetes. Fasting is defined as no caloric intake for at least 8 hours. Fasting glucose between 100 mg/dl to 125 mg/dl is diagnostic of prediabetes. In a patient with classic symptoms of hyperglycemia or hyperglycemic crisis, a random glucose >/= 200 mg/dl is diagnostic for diabetes. In the absence of unequivocal hyperglycemia, results should be confirmed by repeat testing. The classification and Diagnosis of Diabetes Diabetes Care 202; 46: S19-S40. Current interpretive data was last revised 2022. Calcium 9.6 8.5 - 10.3 mg/dL [facility] Blood 05/15/2025 9:31 AM JAVA WEB USER INTERFACE DEVELOPER 05/15/2025 9:31 AM JAVA WEB USER INTERFACE DEVELOPER us Ellis Pearce MD LAB BLOOD ORDERABLES Final Result [facility] [id number] Department of Laboratories [place], [place] [id number] * (ABNORMAL) Urinalysis reflex to microscopic and culture Urine (05/06/2025 4:28 PM CDT) Color, ur Yellow Yellow Clarity, ur Clear Clear [facility] (LILIYA) Specific gravity, ur 1.005 1.003 - 1.030 [facility] ([facility]) pH, urine 6.0 [facility] ([place]) Comment: Interpretive Data U rine pH is affected by diet, medications, systemic acid-base disturbances, and renal tubular function. pH may affect urinary stone formation. For example, urine pH below 6.0 may help reduce the tendency for calcium phosphate stones and pH greater than 6.0 may reduce the tendency for uric acid stone formation. Source: [facility] [place] Current Interpretive Data was last revised on 2017 Protein, ur ql Negative Negative [facility] (LILIYA) Glucose, ur ql Negative Negative [facility] ([place]) Ketones, ur Negative Negative [facility] ([place]IL[place]YA) Bilirubin, ur Negative Negative [facility] ([place]) Blood, ur Negative Negative [facility] ([place]) Urobilinogen, ur <2.0 <2.0 mg/dL [facility] ([place]) Nitrite, ur Negative Negative [facility] (LILIYA) Leukocyte esterase, ur 1+(A) Negative [facility] ([place]) UA reflex comment Reflex to microscopic UA will be performed. [facility] ([place]) Urine 05/06/2025 4:28 PM CDT 05/06/2025 4:31 PM CDT Jolene LOJA LAB MICROBIOLOGY - GENERAL TRISTA JIMENEZ Final Result [facility] ([place]) 1 [facility] [place] [address] * (ABNORMAL) Drugs of Abuse Screen, Urine without Confirmation (05/06/2025 4:28 PM CDT) Amphetamine, ur Not Detected CutOff 500ng/mL Comment: Interpretive Data - Amphetamines: Samples containing greater than 500 ng/mL d-methamphetamine or other cross-reacting amphetamine compounds are reported as positive. Amphetamine immunoassays are subject to significant false positive rates due to cross-reactivity of non-amphetamine drugs. Confirmatory testing required for definitive results. Current Interpretive Data was last reviewed 2023. Barbiturates, ur Not Detected CutOff 200ng/mL [facility] ([place]IL[facility]) Comment: Interpretive Data - Barbiturates: Samples containing greater than 200 ng/mL secobarbital or other cross-reacting barbiturate compounds are reported as positive. False positive and false negative results are possible. Confirmatory testing required for definitive results. Current Interpretive Data was last reviewed 2023. Benzodiazepines, ur Not Detected CutOff 100ng/mL [facility] ([place]) Comment: Interpretive Data - Benzodiazepines: Samples containing greater than 100 ng/mL nordiazepam or other cross-reacting compounds are reported as positive. False positive and false negative results are possible. Confirmatory testing required for definitive results. Current Interpretive Data was last reviewed 2023. Cannabinoids, ur Screen Positive, presumptive (A) CutOff 50 ng/mL [facility] ([place]) Comment: Interpretive Data - Cannabinoids: Samples containing greater than 50 ng/mL delta-9 THC -COOH or other cross- reacting compounds are reported as positive. False positive and false negative results are possible. Confirmatory testing required for definitive results. Current Interpretive Data was last reviewed 2023. Cocaine, ur Not Detected CutOff 150ng/mL [facility] ([place]) Comment: Interpretive Data - Cocaine: Samples containing greater than 150 ng/mL benzoylecgonine or other cross- reacting compounds are reported as positive. False positive and false negative results are possible. Confirmatory testing required for definitive results. Current Interpretive Data was last reviewed 2023. Fentanyl, Ur Not Detected CutOff 5 ng/mL [facility] ([place]IL[place]) Comment: Interpretive Data - Fentanyl: Samples containing greater than 5 ng/mL norfentanyl, fentanyl, or other cross-reacting fentanyl compounds are reported as positive. False positive and false negative results are possible. Confirmatory testing required for definitive results. Current Interpretive Data was last reviewed 2023. Methadone, ur Not Detected CutOff 300ng/mL [facility] ([place]IL[place]) Comment: Interpretive Data - Methadone: Samples containing greater than 300 ng/mL d,l-methadone or other cross-reacting compounds are reported as positive. False positive and false negative results are possible. Confirmatory testing required for definitive results. Current Interpretive Data was last reviewed 2023. Opiates, ur Not Detected CutOff 300ng/mL [facility] ([place]) Comment: Interpretive Data - Opiates: Samples containing greater than 300 ng/mL morphine or other cross-reacting compounds are reported as positive. False positive and false negative results are possible. Confirmatory testing required for definitive results. Current Interpretive Data was last reviewed 2023. Oxycodone, ur NOT DETECTED CutOff 100ng/mL [facility] ([place]) Comment: Interpretive Data - Oxycodone: Samples containing greater than 100 ng/mL oxycodone or other cross-reacting compounds are reported as positive. False positive and false negative results are possible. Confirmatory testing required for definitive results. Current Interpretive Data was last reviewed 2023. Phencyclidine, ur Not Detected CutOff 25 ng/mL [facility] ([place]) Comment: Interpretive Data - Phencyclidine: Samples containing greater than 25 ng/mL phencyclidine or other cross-reacting compounds are reported as positive. False positive and false negative results are possible. Confirmatory testing required for definitive results. Current Interpretive Data was last reviewed 2023. Urine Creatinine 40 mg/dL [facility] ([place]) Comment: Interpretive Data Urine Creatinine: < 10 mg/dL is extremely dilute = or > 10 but < 20 mg/dL is dilute = or > 20 mg/dL is normal Current Interpretive Data was last revised on 2017. Urine 05/06/2025 4:28 PM CDT 05/06/2025 4:31 PM CDT Narrative [facility] ([place]) - 05/06/2025 5:20 PM CDT Drug of Abuse screening is performed by immunoassay for medical purposes only. This is not to be used for Pain Management purposes. Luminate LAB URINE ORDERABLES Final Resu lt Performing Organization Address City/[facility] Co de Phone Number PHANI [facility] ([place]) 1 [facility] [place] [address] * hCG, urine, qualitative (05/06/2025 4:28 PM CDT) HCG, ur Negative Negative Urine 05/06/2025 4:28 PM CDT 05/06/2025 4:31 PM CDT Luminate LAB URINE ORDERABLES Final Resu lt PHANI [facility] ([place]) [address] [facility] [place] [address] * (ABNORMAL) Urinalysis, microscopic only (05/06/2025 4:28 PM CDT) WBC, ur 0-5 0 - 5 /HPF RBC, ur 0-2 0 - 2 /HPF [facility] (LILIYA) Epithelial cells, squamous, ur 6-10(A) 0 - 5 /HPF [facility] (LILIYA) Culture Reflex Comment Reflex conditions for urine culture (WBC >10) not met. [facility] (LILIYA) Urine 05/06/2025 4:28 PM CDT 05/06/2025 4:31 PM CDT Jolene LOJA LAB URINE ORDERABLES Final Resu lt Performing Organization Address City/[facility] Co de Phone Number PHANI [facility] (LILIYA) 1 [facility] for; [place] [address] * eGFR (05/06/2025 4:26 PM CDT) eGFR >90 >=60 mL/min/1. 73 m2 Comment: Interpretive Data Reference Interval Normal >/= 90 mL/min/1.73m2 Mildly decreased* 60 - 89 mL/min/1.73m2 Mildly to moderately decreased 45 - 59 mL/min/1.73m2 Moderately to severely decreased 30 - 44 mL/min/1.73m2 Severely decreased 15 - 29 mL/min/1.73m2 Kidney Failure < 15 mL/min/1.73m2 *Relative to young adult level Estimated glomerular filtration rate is determined by the 2020 CKD-EPI equation recommended by the National Kidney Foundation (A Unifying Approach to GFR Estimation: Recommendations of the NKF-ASK Task Force on Reassessing the Inclusion of Race in Diagnosing Kidney Disease, JASN 2020). The CKD-EPI equation should not be used for patients with unstable renal function and has not been validated in children and those over 70. Current interpretive data was last reviewed 2021. Blood 05/06/2025 4:26 PM CDT 05/06/2025 4:31 PM CDT Jolene LOJA LAB BLOOD ORDERABLES Final Resu lt Performing Organization Address [facility]/ZIP Co de Phone Number [facility] (LILIYA) 1 [facility] [place] [address] * (ABNORMAL) Differential, auto (05/06/2025 4:26 PM CDT) Neutrophil abs 8.99(H) 1.50 - 6.50 K/cumm Imm gran abs 0.03 0.00 - 0.10 K/cumm [facility] ([facility]) Lymphocyte abs 2.04 0.80 - 3.30 K/cumm [facility] ([place]) Monocyte abs 0.79 0.20 - 0.80 K/cumm [facility] ([place]) Eosinophil abs 0.08 0.00 - 0.50 K/cumm [facility] ([place]) Basophil abs 0.10 0.00 - 0.10 K/cumm [facility] ([place]IL[place]) Neutrophil pct 74.7 % [facility] ([place]IL[place]) Comment: Interpretive Data Percent cell count reference ranges are not reported, since discordance with absolute values may lead to misinterpretation of CBC data. Current Interpretive Data was last revised on 2017. Imm gran pct 0.2 % [facility] ([place]IL[place]) Comment: Interpretive Data Percent cell count reference ranges are not reported, since discordance with absolute values may lead to misinterpretation of CBC data. Current Interpretive Data was last revised on 2017. Lymphocyte pct 17.0 % [facility] (LILIYA) Comment: Interpretive Data Percent cell count reference ranges are not reported, since discordance with absolute values may lead to misinterpretation of CBC data. Current Interpretive Data was last revised on 2017. Monocyte pct 6.6 % [facility] ([place]IL[place]) Comment: Interpretive Data Percent cell count reference ranges are not reported, since discordance with absolute values may lead to misinterpretation of CBC data. Current Interpretive Data was last revised on 2017. Eosinophil pct 0.7 % [facility] (LILIYA) Comment: Interpretive Data Percent cell count reference ranges are not reported, since discordance with absolute values may lead to misinterpretation of CBC data. Current Interpretive Data was last revised on 2017. Basophil pct 0.8 % [facility] ([place]IL[place]) Comment: Interpretive Data Percent cell count reference ranges are not reported, since discordance with absolute values may lead to misinterpretation of CBC data. Current Interpretive Data was last revised on 2017. Blood 05/06/2025 4:26 PM CDT 05/06/2025 4:31 PM CDT Jolene LOJA LAB BLOOD ORDERABLES Final Resu lt [facility] ([place]) 1 [facility] [place] [address] * Thyroid Function [place] (05/06/2025 4:26 PM CDT) TSH 0.36 0.30 - 4.20 mcIUnit/mL Blood 05/06/2025 4:26 PM CDT 05/06/2025 4:31 PM CDT Jolene Navarrete ID LAB BLOOD ORDERABLES Final Resu lt Performing Organization Address City/[facility]/ZIP Co de Phone Number [facility] (LILIYA) 1 [facility] [place] [address] * (ABNORMAL) CBC with auto differential (05/06/2025 4:26 PM CDT) Pathologist [facility] WBC 12.03(H) 3.80 - 9.90 K/cumm Hgb 12.2 11.9 - 15.5 g/dL [facility] ([place]) Hct 36.4 35.6 - 45.5 % [facility] ([place]) Plt 367 150 - 400 K/cumm [facility] ([place]) MPV 8.7(L) 9.1 - 12.3 fL [facility] ([place]) RBC 4.37 3.90 - 5.20 M/cumm [facility] ([place]) MCV 83.3 81.3 - 96.4 fL [facility] ([place]) MCH 27.9 27.1 - 33.3 pg [facility] ([place]) MCHC 33.5 32.3 - 35.7 g/dL [facility] ([place]) RDW CV 13.8 11.1 - 14.9 % [facility] ([place]) RDW SD 42.3 35.7 - 48.1 fL [facility] ([place]) NRBC abs 0.00 0.00 - 0.01 K/cumm [facility] ([place]) Blood 05/06/2025 4:26 PM CDT 05/06/2025 4:31 PM CDT Jolene LOJA LAB BLOOD ORDERABLES Final Resu lt Performing Organization Address City/[facility]/ZIP Co de Phone Number [facility] ([place]) 1 [facility] [place] [address] * Ethanol (05/06/2025 4:26 PM CDT) Ethanol <10 <=10 mg/dL Comment: Interpretive Data Legal limit of intoxication > or = 80 mg/dL Levels > or = 400 mg/dL are potentially TOXIC. Current interpretive data was last revised on 2018. Blood 05/06/2025 4:26 PM CDT 05/06/2025 4:31 PM CDT Jolene LOJA LAB BLOOD ORDERABLES Final Resu lt Performing Organization Address [facility] Co de Phone Number [facility] ([place]) 1 [facility] [place] [address] * Salicylate level (05/06/2025 4:26 PM CDT) Salicylate <5.0 <=5.0 mg/dL Comment: Interpretive Data Toxic: 30 mg/dL or greater. Current interpretive data was last revised 2023. Blood 05/06/2025 4:26 PM CDT 05/06/2025 4:31 PM CDT Jolene LOJA LAB BLOOD ORDERABLES Final Resu lt Performing Organization Address City/[facility]/ZIP Co de Phone Number [facility] ([place]) 1 [facility] [place] [address] * (ABNORMAL) Comprehensive metabolic panel (05/06/2025 4:26 PM CDT) Sodium 135 135 - 145 mmol/L Potassium, pl 3.4 3.3 - 4.9 mmol/L [facility] ([place]) Chloride 101 97 - 110 mmol/L [facility] ([place]) CO2 20(L) 22 - 32 mmol/L [facility] ([place]) Anion gap 14 2 - 15 mmol/L [facility] ([place]) BUN 9 6 - 25 mg/dL [facility] ([place]) Creatinine 0.64 0.60 - 1.10 mg/dL [facility] ([place]) Glucose 109 70 - 199 mg/dL [facility] ([place]) Comment: Interpretive Data Fasting glucose >/= 126 mg/dl is diagnostic for diabetes. Fasting is defined as no caloric intake for at least 8 hours. Fasting glucose between 100 mg/dl to 125 mg/dl is diagnostic of prediabetes. In a patient with classic symptoms of hyperglycemia or hyperglycemic crisis, a random glucose >/= 200 mg/dl is diagnostic for diabetes. In the absence of unequivocal hyperglycemia, results should be confirmed by repeat testing. The classification and Diagnosis of Diabetes Diabetes Care 202; 46: S19-S40. Current interpretive data was last revised 2022. Calcium 9.8 8.5 - 10.3 mg/dL [facility] ([place]) Bilirubin, total 0.5 0.1 - 1.2 mg/dL [facility] ([place]) Protein, pl 7.1 6.5 - 8.5 g/dL [facility] (LLII[place]) Albumin 4.6 3.5 - 5.0 g/dL [facility] ([place]) Alk phos 72 40 - 130 Units/L [facility] ([place]) ALT 15 7 - 45 Units/L [facility] ([place]) AST 22 10 - 45 Units/L [facility] ([place]) Blood 05/06/2025 4:26 PM CDT 05/06/2025 4:31 PM CDT us Jolene LOJA LAB BLOOD ORDERABLES Final Resu lt [facility] ([place]) [address] [place] [address] * Hepatitis C antibody Blood (01/11/2025 1:21 PM CDT) Hep C Ab Nonreactive Nonreactive Comment: Interpretive Data Nonreactive: Antibodies to HCV not detected. Does NOT exclude the possibility of recent exposure to HCV. Equivocal: Equivocal for HCV antibodies. Supplemental molecular testing will be automatically performed to determine infection status in accordance with current CDC screening recommendations. Reactive: Positive for HCV antibodies. This may represent current or past HCV infection. Supplemental molecular testing will be automatically performed to determine current infection status in accordance with current CDC screening recommendations. Interpretive data was last revised on 2019. Blood 01/11/2025 1:21 PM CDT 01/11/2025 7:16 PM CDT Haile Wadsworth MD LAB MICROBIOLOGY - GENERAL ORD ERABLES Final Result [facility] [address] Department [place] [address] from Last 3 Months or Most Recently Relevant to Health Maintenance Insurance [facility] Advance Directives For more information, please contact: [phone] * Full Code (Latest Code Status on File) Date Activated Date Inactivated Comments 06/16/2024 2:01 PM 06/19/2024 5:54 PM * Full Code Date Activated Date Inactivated Comments 05/28/2024 2:29 PM 05/30/2024 6:09 PM * Full Code Date Activated Date Inactivated Comments 04/01/2024 6:09 PM 04/03/2024 5:30 PM * Full Code Date Activated Date Inactivated Comments 02/13/2024 6:49 PM 02/19/2024 5:53 PM * Full Code Date Activated Date Inactivated Comments 02/01/2024 12:22 AM 02/02/2024 4:40 PM Care Teams Deckhand Relationship Specialty Start Date End Date No, Physician PCP - General 06/16/24 Byron Barnes MD [address] [facility] [address] YULIA Singer [facility] [address] [place] [address] Consulting Physician Obstetrics and Gynecology 07/19/22 Cory Mustafa MD [address] [facility] [address] [place] [address] Consulting Physician Gastroenterology 12/01/23 Daniela Kimble PA [address] [facility] [place] [address] Gastroenterology 01/26/24
[2025-06-07 13:34] LABS: Alanine Aminotransferase 20 U/L (6-35); Albumin Level 4.5 g/dL (3.5-5.1); Alkaline Phosphatase 72 U/L (38-126); Anion Gap 4 mmol/L (4-12); Aspartate Amino Transferase 23 U/L (14-36); Bilirubin,Total 0.5 mg/dL (0.2-1.3); Blood Urea Nitrogen 12 mg/dL (7-17); Calcium 9.7 mg/dL (8.4-10.2); Carbon Dioxide 29 mmol/L (22-30); Chloride 105 mmol/L (98-107); Estimated CRCL calculation 115 ml/min; Estimated Glomerular Filt Rate > 60; Glucose 97 mg/dL (65-110); Potassium 3.4 mmol/L (3.4-5.0); Sodium 138 mmol/L (137-145); Total Protein 7.4 g/dL (6.3-8.2)
[2025-06-07 13:38] LABS: Influenza A QL RT-PCR Negative (Negative); Influenza B QL RT-PCR Negative (Negative); RSV RNA, RT-PCR Negative (Negative); SARS-CoV-2 RNA PCR Negative (Negative)
[2025-06-07 13:56] LABS: Cannabinoid Screen Urine Positive (Negative)
[2025-06-07 14:03] LABS: Add Urine Microscopic? YES; Appearance Urine Cloudy (Clear); Glucose Urine UA Negative (Negative); Leukocyte Esterase Ur Trace LEU/UL (Negative); Need Manual Microscopic Reviewed; Nitrate Urine Negative (Negative); Non Pathogenic Casts 0-2; Specific Grav Ur 1.027 (1.001-1.035)
--- NOTE | 2025-06-07 14:19 | ED.PSYCH ---
HPI - Psych General Chief Complaint: Psychiatric Symptoms Stated Complaint: psych eval Time Seen by Provider: 06/07/25 11:44 History of Present Illness HPI Narrative: Patient presenting here for psychiatric evaluation, she was found outside naked, has history of schizoaffective disorder but has not been taking her medications, she tells me she needs to take accountability. Related Data Allergies Allergy/AdvReac Type Severity Reaction Status Date / Time No Known Allergies Allergy Mild Verified 06/07/25 11:54 Review of Systems Review of Systems: All systems reviewed & are unremarkable except as noted in HPI and below PMFSH Past Medical History Medical History Alcohol abuse Pancreatitis Family History Family History Grandparent Pancreatic cancer both maternal and paternal side Social History Social History Smoking packs per day: 0.5 Smoking cigarettes per day: 10.0 Years smoked: 15 Smoking pack-years: 7.50 Smoking status: Never smoker Tobacco type: cigarettes Second hand tobacco smoke exposure: No Alcohol intake: never Drinks per week: 35 Substance use: never Substance use type: does not use Last use: 06/02/23 Lack of Transportation: No Lack of Food: Never True Current Housing: I Have Housing Concerned About Future Housing: No Difficulty Paying Gas/Electric Bills: No Difficulty Paying for Meds: No Currently Unemployed: No Education: High School Diploma/GED Difficulty w/ Childcare or Family Care: No Spiritual care concerns: No Exam Narrative: EXAMINATION OF ORGAN SYSTEMS/BODY AREAS: Constitutional: Vital signs per nursing GENERAL:[No acute distress, non-toxic appearing.] HEAD: Normal with no signs of head trauma. EYES: EOMI, conjunctiva normal ENT: Hearing grossly intact LUNGS: Nonlabored breathing. HEART: [Regular rate and rhythm] ABD: [Soft], [nontender to palpation] EXT: Normal range of motion SKIN: [No rashes or lesions.] NEURO: [Alert. No gross focal sensory or strength deficits.] Course Vital Signs Vital signs: Vital Signs Temperature 97.6 F 06/07/25 11:46 Pulse Rate 84 06/07/25 11:46 Respiratory Rate 16 06/07/25 11:46 Blood Pressure 124/76 06/07/25 11:46 Pulse Oximetry 99 06/07/25 11:46 Temperature 97.6 F 06/07/25 11:46 Pulse Rate 80 06/07/25 14:49 Respiratory Rate 18 06/07/25 14:49 Blood Pressure 126/87 06/07/25 14:49 Pulse Oximetry 100 06/07/25 14:49 MDM - Psych MDM Narrative Medical decision making narrative: Patient with history of schizoaffective disorder not taking her medications presents here for psychotic episode, denies any medical complaints. Labs obtained are unremarkable other than possible UTI which she will be treated with antibiotics. Medically clear for psychiatric evaluation. Accepted at [facility] by Dr. Flaherty. Patient stable for transfer. Lab Data 06/07/25 12:31 06/07/25 13:10 Labs: Lab Results 06/07/25 06/07/25 06/07/25 Range/Units 12:31 13:10 13:22 WBC 8.2 (4.5-10.0) K/mm3 RBC 4.51 (4.2-5.4) M/mm3 Hgb 13.1 (12.0-15.0) g/dL Hct 40.0 (37.0-47.0) % MCV 88.7 (80-100) fl MCH 29.0 (26-34) pg MCHC 32.8 (32-36) g/dl RDW 14.2 (11.5-14.5) % Plt Count 329 (150-375) k/mm3 MPV 9.0 (7.4-10.4) fl Immature Gran % (Auto) 0.2 (0-0.5) % Neut % (Auto) 72.1 (45.5-73.1) % Lymph % (Auto) 22.3 (18.3-44.2) % [place] % (Auto) 4.0 (2.6-8.5) % Eos % (Auto) 0.7 (0-4.4) % Baso % (Auto) 0.7 (0.2-1.2) % Lymph # (Auto) 1.83 (0.9-3.2) K/mm3 [place] # (Auto) 0.3 (0.1-0.6) K/mm3 Eos # (Auto) 0.1 (0-0.3) K/mm3 Baso # (Auto) 0.1 (0.0-0.1) K/mm3 Abs Immat Gran (auto) 0.02 (0.00-0.031) K/mm3 Absolute Neuts (auto) 5.9 (1.3-6.7) K/mm3 Absolute Nucleated RBC 0.000 (0.0-0.012) K/mm3 Nucleated RBC % 0.0 (0.0-0.2) % Sodium 138 (137-145) mmol/L Potassium 3.4 (3.4-5.0) mmol/L Chloride 105 (98-107) mmol/L Carbon Dioxide 29 (22-30) mmol/L Anion Gap 4 (4-12) mmol/L BUN 12 D (7-17) mg/dL Creatinine 0.55 L (0.7-1.0) mg/dL Estim Creat Clear Calc 115 ml/min Estimated GFR > 60 (59 - ) Glucose 97 (65-110) mg/dL Calcium 9.7 (8.4-10.2) mg/dL Total Bilirubin 0.5 (0.2-1.3) mg/dL AST 23 (14-36) U/L ALT 20 (6-35) U/L Alkaline Phosphatase 72 (38-126) U/L Total Protein 7.4 (6.3-8.2) g/dL Albumin 4.5 (3.5-5.1) g/dL TSH (Reflex) 0.446 L (0.465-4.68) uIU/mL Free T4 1.94 (0.78-2.19) ng/dL Total T3 2.10 H (0.82-1.58) NG/ML Urine Color Yellow (Yellow) Urine Appearance Cloudy H (Clear) Urine pH 6.5 (5.0-9.0) Ur Specific [place] 1.027 (1.001-1.035) Urine Protein Trace (Negative) mg/dL Urine Glucose (UA) Negative (Negative) mg/dL Urine Ketones 1+ H (Negative) mg/dL Ur Blood (Man) Negative (Negative) Urine Nitrate Negative (Negative) Urine Bilirubin Negative (Negative) Urine Urobilinogen 1.0 (<2.0) mg/dL Add Ur Microanalysis Reviewed Leukocyte Esterase Rfl Trace H (Negative) SANDRA/UL Urine RBC 0-2 (0-2) /hpf Urine WBC 11-20 H (0-3) /hpf Ur Squamous Epith Cells Moderate (Few) /hpf Urine Bacteria 1+ H /hpf Urine Casts 0-2 Urine Mucus Present /lpf POC Urine HCG, Qual (Negative) Salicylates < 1.0 L (2-20) mg/dL Urine Opiates Screen Negative (Negative) Urine Methadone Screen Negative (Negative) Acetaminophen < 10 L (10-30) ug/mL Ur Barbiturates Screen Negative (Negative) Ur Phencyclidine Scrn Negative (Negative) Ur Amphetamine Screen Negative (Negative) U Benzodiazepines Scrn Negative (Negative) Urine Cocaine Screen Negative (Negative) U Cannabinoids Screen Positive A (Negative) Ethyl Alcohol < 10 (<10) mg/dL Influenza A (RT-PCR) Negative (Negative) Influenza B (RT-PCR) Negative (Negative) RSV (RT-PCR) Negative (Negative) SARS-CoV-2 RNA (RT-PCR) Negative (Negative) 06/07/25 Range/Units 13:23 WBC (4.5-10.0) K/mm3 RBC (4.2-5.4) M/mm3 Hgb (12.0-15.0) g/dL Hct (37.0-47.0) % MCV (80-100) fl MCH (26-34) pg MCHC (32-36) g/dl RDW (11.5-14.5) % Plt Count (150-375) k/mm3 MPV (7.4-10.4) fl Immature Gran % (Auto) (0-0.5) % Neut % (Auto) (45.5-73.1) % Lymph % (Auto) (18.3-44.2) % [place] % (Auto) (2.6-8.5) % Eos % (Auto) (0-4.4) % Baso % (Auto) (0.2-1.2) % Lymph # (Auto) (0.9-3.2) K/mm3 [place] # (Auto) (0.1-0.6) K/mm3 Eos # (Auto) (0-0.3) K/mm3 Baso # (Auto) (0.0-0.1) K/mm3 Abs Immat Gran (auto) (0.00-0.031) K/mm3 Absolute Neuts (auto) (1.3-6.7) K/mm3 Absolute Nucleated RBC (0.0-0.012) K/mm3 Nucleated RBC % (0.0-0.2) % Sodium (137-145) mmol/L Potassium (3.4-5.0) mmol/L Chloride (98-107) mmol/L Carbon Dioxide (22-30) mmol/L Anion Gap (4-12) mmol/L BUN (7-17) mg/dL Creatinine (0.7-1.0) mg/dL Estim Creat Clear Calc ml/min Estimated GFR (59 - ) Glucose (65-110) mg/dL Calcium (8.4-10.2) mg/dL Total Bilirubin (0.2-1.3) mg/dL AST (14-36) U/L ALT (6-35) U/L Alkaline Phosphatase (38-126) U/L Total Protein (6.3-8.2) g/dL Albumin (3.5-5.1) g/dL TSH (Reflex) (0.465-4.68) uIU/mL Free T4 (0.78-2.19) ng/dL Total T3 (0.82-1.58) NG/ML Urine Color (Yellow) Urine Appearance (Clear) Urine pH (5.0-9.0) Ur Specific [place] (1.001-1.035) Urine Protein (Negative) mg/dL Urine Glucose (UA) (Negative) mg/dL Urine Ketones (Negative) mg/dL Ur Blood (Man) (Negative) Urine Nitrate (Negative) Urine Bilirubin (Negative) Urine Urobilinogen (<2.0) mg/dL Add Ur Microanalysis Leukocyte Esterase Rfl (Negative) SANDRA/UL Urine RBC (0-2) /hpf Urine WBC (0-3) /hpf Ur Squamous Epith Cells (Few) /hpf Urine Bacteria /hpf Urine Casts Urine Mucus /lpf POC Urine HCG, Qual Negative (Negative) Salicylates (2-20) mg/dL Urine Opiates Screen (Negative) Urine Methadone Screen (Negative) Acetaminophen (10-30) ug/mL Ur Barbiturates Screen (Negative) Ur Phencyclidine Scrn (Negative) Ur Amphetamine Screen (Negative) U Benzodiazepines Scrn (Negative) Urine Cocaine Screen (Negative) U Cannabinoids Screen (Negative) Ethyl Alcohol (<10) mg/dL Influenza A (RT-PCR) (Negative) Influenza B (RT-PCR) (Negative) RSV (RT-PCR) (Negative) SARS-CoV-2 RNA (RT-PCR) (Negative) Discharge Plan Discharge Clinical Impression: Acute psychosis Urinary tract infection Qualifiers: Urinary tract infection type: acute cystitis Hematuria presence: with hematuria Qualified Code(s): N30.01 - Acute cystitis with hematuria Patient Disposition: Psychiatric Hosp Condition: Stable Patient Language: Macanese Prescriptions: New nitrofurantoin monohyd/m-cryst [Macrobid] 100 mg capsule 100 mg PO Q12H 5 Days Qty: 10 0RF Rx Instructions: must administer with a meal/food nitrofurantoin monohyd/m-cryst [Macrobid] 100 mg capsule 100 mg PO Q12H 5 Days Qty: 10 0RF Rx Instructions: must administer with a meal/food No Action prochlorperazine maleate [Compazine] 10 mg tablet 10 mg PO Q8H PRN (Reason: nausea and vomiting) Qty: 10 0RF famotidine [Pepcid] 20 mg tablet 20 mg PO BID Qty: 30 0RF Follow-up/Referrals: Verenice,FREEDOM Hoyos [Primary Care Provider, Unknown]
[2025-06-07 14:22] LABS: Free T4 Free Thyroxine Reflex 1.94 ng/dL (0.78-2.19)
[2025-06-07] MEDS: NITROFURANTOIN MONOHYD MACROCR 100 MG CAP PO (14:47)
[2025-06-07 14:49] VITALS: BP 126/87; PULSE 80; RESP 18; O2SAT 100
[2025-06-07 15:16] LABS: Total Triiodothyronine (T3) 2.10 NG/ML (0.82-1.58)
--- NOTE | 2025-06-07 17:27 | PC.NURSE ---
phone call recieved from Maribel at [facility], requesting to re send lab results. This RN faxed pt lab results to [phone] at this time as requested.
[2025-06-07] MEDS: LORazepam (*CRX) 1 MG TABLET PO (18:18)
[2025-06-07 18:20] VITALS: BP 124/83; PULSE 82; RESP 15; O2SAT 100
--- NOTE | 2025-06-08 00:17 | PC.NURSE ---
Spoke to [facility] about Pt acceptance into their unit. Accepting physician is Dr. Davis into room 5333-A. Number to call report/updates is [phone]
--- NOTE | 2025-06-08 03:18 | PC.NURSE ---
Commuincated with Micole at [facility] about 6 AM ETA of EMS for PT
[2025-06-08 07:25] VITALS: BP 108/75; PULSE 96; RESP 16; TEMP 36.7; O2SAT 99
--- NOTE | 2025-06-08 07:35 | PC.NURSE ---
Pt offered breakfast tray and declined stating she was not hungry at this time
[2025-06-08 10:12] VITALS: BP 118/72; PULSE 92; RESP 16; TEMP 36.7; O2SAT 99
== END 2025-06-08 10:14 ==
PROVIDERS: Emergency Provider Emergency Medicine; PCP Physician Assistant
DX: F23 Brief psychotic disorder (principal); N30.01 Acute cystitis with hematuria; F25.9 Schizoaffective disorder, unspecified; Z20.822 Contact with and (suspected) exposure to COVID-19
CPT/HCPCS: 36415; 80053; 80143; 80179; 80307; 81001; 81025; 82077; 84439; 84443; 84480; 85025; 87637; 99285; A9270